=== PATIENT | female | born 1950 | race Caucasian/White ===

== ENCOUNTER 2023-11-16 13:03 | Outpatient (AMB) | payer OTHER, SELFPAY ==
--- NOTE | 2023-11-16 13:05 | A.OFFPC_ITS ---
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 Allergies Sulfa (Sulfonamide Antibiotics) Allergy (Severe, Verified 11/16/23 13:26) Hives doxycycline Allergy (Unknown, Verified 11/16/23 13:58) Unknown penicillin G Allergy (Unknown, Verified 11/16/23 13:58) Hives Medication List - Last Reconciled 11/16/23 by Katie Burns MD aspirin 81 mg PO DAILY cholecalciferol (vitamin D3) 25 mcg PO DAILY hydrocortisone valerate 0.2% 1 appl topical BID PRN metronidazole 0.75% 1 appl topical BID saliva substitute combo no.9 (Biotene PBF mouthwash) 15 mL mucous membrane BID- QID PRN triamcinolone acetonide 0.5% 1 appl topical DAILY zoledronic rkem-vgyjjquu-lyeqy 5 mg/100 mL (Reclast) ea IV Tobacco use date assessed: 11/16/23 Fall risk assessment: 1 Fall in past year Last assessed Fall Risk: 11/16/23 Dental Screening Dental Screen Date: 11/16/23 Did you have a dental visit in the last 12 months?: Yes Did you have a dental problem in the last 6 months where you did not have access to dental care?: No Was dental information given to patient?: Patient has dentist HPI HPI Comments History of Present Illness Details 73 year old female with past medical his tory of osteoporosis, hyperlipidemia, diverticulitis, thyroid nodules presenting for physical exam Endocrine: Follows with endocrine for osteoporosis, thyroid nodules. On reclast vacation GI: History of recurrent diverticulitis s/p sigmoidectomy in 2022. Saw [facility] for hip and upper thigh discomfort. There was some changes L4L5 noted on xray. Pain in the lateral buttock and anterior thigh have increased and often disrupt sleep. She has a history of knee pain has received left knee injection at [facility] with good improvement. 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 Mammogram 02/2023 ([place]) Colonoscopy 2021 Td 2021 Due pneumonia 20 PFSH Medical History (Updated 11/16/23 @ 14:48 by Katie Burns MD) Diverticulitis Rosacea Periocular dermatitis Bilateral cataracts Diverticulosis of colon Surgical History (Updated 11/16/23 @ 13:56 by Claudia Pardo CMA) H/O oral surgery H/O breast implant History of facelift Family History (Updated 11/16/23 @ 13:59 by Claudia Pardo CMA) Mother HTN (hypertension) Diabetes Father Hypercholesteremia Social History Housing: House Patient Tobacco Use Status: Never used Tobacco e-Cigarette/Vaping Use: Never Used Second Hand Smoke Exposure: No service: No Current occupational status: employed 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 1. Little interest or pleasure in doing things: not at all 2. Feeling down, depressed, or hopeless: not at all 3. Trouble falling or staying asleep, or sleeping too much: not at all 4. Feeling tired or having little energy: not at all 5. Poor appetite or overeating: not at all 6. Feeling bad about yourself - or that you are a failure or have let yourself or your family down: not at all 7. Trouble concentrating on things, such as reading the newspaper or watching television: not at all 8. Moving or speaking so slowly that other people could have noticed. Or the opposite - being so fidgety or restless that you have been moving around a lot more than usual: not at all 9. Thoughts that you would be better off or of hurting yourself in some way: not at all Total score: 0 Depression Screening Interpretation: Negative (neg) Depression Screening Done: Yes 85778 - PHQ-9 Billing: Yes Source: Developed by Drs. Marcus Mireles, Michelle Naranjo, Toney Michael and colleagues, with an educational gilberto from [employer]. Thrive Questionnaire Date Thrive assessed: 11/16/23 I am a: Patient What is your living situation today?: I have a steady place to live Within the past 12 months, did the food you bought not last and you didn't have the money to get more?: Never true Within the past 12 months, did you worry whether your food would run out before you got money to buy more?: Never true Do you have trouble paying for medicines?: No Do you have trouble getting transportation to medical appointments?: No Do you have trouble paying your heating and electricity bill?: No Do you have trouble taking care of your child, family member or friend?: No Do you have trouble with day-to-day activities such as bathing, preparing meals, shopping, managing finances, etc.?: No Are you currently unemployed and looking for a job?: No Are you interested in more education?: No Please select the resources that you would like help with: None Currently or been in a relationship where the following occur: no concerns reported THRIVE Score: 0 AUDIT C Alcohol Use Questionnaire (AUDIT-C) 1. How often do you have a drink containing alcohol?: Never 2. How many drinks containing alcohol do you have on a typical day when you are drinking?: 1 or 2 3. How often do you have six or more drinks on one occasion?: Never Total Score: 0 DAFNE-7 AMB Questionnaire DAFNE-7 Date DAFNE - 7 assessed: 11/16/23 Feeling nervous, anxious, or on edge: 0 = Not at all Not being able to stop or control worryin = Not at all Worrying too much about different things: 0 = Not at all Trouble relaxin = Not at all Being so restless that it is hard to sit still: 0 = Not at all Becoming easily annoyed or irritable: 0 = Not at all Feeling afraid as if something awful might happen: 0 = Not at all Total DAFNE-7 score (0-4 normal; 5-9 mild; 10-14 moderate; 15-21 severe): 0 Source: Developed by Drs. Marcus Mireles, Michelle Naranjo, Toney Michael and colleagues, with an educational gilberto from [employer]. DAFNE-7 Assessment Billing DAFNE-7 Assessment Tool: DAFNE-7 Assessment 77515 Review of Systems Const Details: ROS CONSTITUTIONAL: Denies weight loss, fever and chills. HEENT: Denies changes in vision and hearing. RESPIRATORY: Denies SOB and cough. CV: Denies palpitations and CP GI: Denies abdominal pain, nausea, vomiting and diarrhea. : Denies dysuria and urinary frequency. MSK: see HPI SKIN: Denies rash and pruritus. NEUROLOGICAL: Denies headache PSYCHIATRIC: Denies recent changes in mood. Physical exam (Primary Care) Vital Signs: Last Vital Signs Temp 97.4 F 11/16/23 13:34 Pulse 76 11/16/23 13:34 Resp 76 H 11/16/23 13:34 BP 104/60 11/16/23 13:34 Pulse Ox 95 11/16/23 13:34 Oxygen Delivery Method Room Air 11/16/23 13:34 PHYSICAL EXAM: GENERAL: Alert and oriented x 3. NAD EYES: EOMI. Anicteric. HENT: Moist mucous membranes. LUNGS: Clear to auscultation bilaterally. CARDIOVASCULAR: Regular rate and rhythm. No murmur. No JVD. ABDOMEN: Soft, non-tender +bs EXTREMITIES: No edema. Non-tender. SKIN: No rashes or lesions. Warm. NEUROLOGIC: No focal neurological deficits. PSYCHIATRIC: Cooperative. Appropriate mood and affect BMI result Body Mass Index 23.5 Depression Screening Interpretation: Negative (neg) Currently or been in a relationship where the following occur: no concerns repo rted Assessment and Plan Assessment & Plan (1) Osteoporosis: Code(s): M81.0 - Age-related osteoporosis without current pathological fracture Qualifiers: Osteoporosis type: age-related Presence of current pathological fracture: unspecified Qualified Code(s): M81.0 - Age-related osteoporosis without current pathological fracture (2) IBS (irritable bowel syndrome): Code(s): K58.9 - Irritable bowel syndrome without diarrhea Qualifiers: Irritable bowel syndrome type: unspecified Qualified Code(s): K58.9 - Irritable bowel syndrome without diarrhea (3) Hyperlipidemia: Code(s): E78.5 - Hyperlipidemia, unspecified Qualifiers: Hyperlipidemia type: mixed hyperlipidemia Qualified Code(s): E78.2 - Mixed hyperlipidemia (4) Thyroid nodule: Code(s): E04.1 - Nontoxic single thyroid nodule (5) Physical exam: Code(s): Z00.00 - Encounter for general adult medical examination without abnormal findings (6) Lumbosacral radiculopathy: Comment: referral pain management for consideration of injection etc. Has completed PT Code(s): M54.17 - Radiculopathy, lumbosacral region Orders: Orders Complete Blood Count Auto Diff Today E04.1 - Nontoxic single thyroid nodule, E78.5 - Hyperlipidemia, unspecified, K58.9 - Irritable bowel syndrome without diarrhea, M81.0 - Age-related osteoporosis without current pathological fracture Comprehensive Met. Panel Today E04.1 - Nontoxic single thyroid nodule, E78.5 - Hyperlipidemia, unspecified, K58.9 - Irritable bowel syndrome without diarrhea, M81.0 - Age-related osteoporosis without current pathological fracture Lipid Panel Today E04.1 - Nontoxic single thyroid nodule, E78.5 - Hyperlipidemia, unspecified, K58.9 - Irritable bowel syndrome without diarrhea, M81.0 - Age-related osteoporosis without current pathological fracture Referrals Pain Management Referral M54.17 - Radiculopathy, lumbosacral region Coding Level of Care Code Est Pt Prev Care >65y(86306) Diagnoses Age related osteoporosis, unspecified pathological fracture presence M81.0 Osteoporosis type: age-related Presence of current pathological fracture: unspecified Irritable bowel syndrome, unspecified type K58.9 Irritable bowel syndrome type: unspecified Mixed hyperlipidemia E78.2 Hyperlipidemia type: mixed hyperlipidemia Thyroid nodule E04.1 Physical exam Z00.00 Lumbosacral radiculopathy M54.17 Additional Codes DAFNE-7 Assessment Billing - DAFNE-7 Assessment Tool: DAFNE-7 Assessment 58906 ([id number]) Comment + modifier 25 (lumbosacral radiculopathy)
[2023-11-16 13:34] VITALS: BP 104/60; PULSE 76; RESP 76; TEMP 36.3; O2SAT 95; BMI 23.5
== END 2023-11-16 14:46 | disposition home or self-care (01) ==
PROVIDERS: PCP Internal Medicine; Visit Provider Internal Medicine
DX: M81.0 Age-related osteoporosis without current pathological fracture (principal); K58.9 Irritable bowel syndrome, unspecified; E78.2 Mixed hyperlipidemia; E04.1 Nontoxic single thyroid nodule; Z00.00 Encounter for general adult medical examination without abnormal findings; M54.17 Radiculopathy, lumbosacral region
CPT/HCPCS: 99397

== ENCOUNTER 2025-04-15 12:58 | Outpatient (AMB) | payer OTHER, SELFPAY ==
--- NOTE | 2025-04-15 13:04 | MHC.PC.OV ---
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 Allergies Sulfa (Sulfonamide Antibiotics) Allergy (Severe, Verified 04/15/25 13:08) Hives doxycycline Allergy (Unknown, Verified 04/15/25 13:08) Unknown penicillin G Allergy (Unknown, Verified 04/15/25 13:08) Hives Tobacco use date assessed: 04/15/25 Fall risk assessment: No Falls in past year Last assessed Fall Risk: 04/15/25 Dental Screening Dental Screen Date: 04/15/25 Did you have a dental visit in the last 12 months?: Yes Did you have a dental problem in the last 6 months where you did not have access to dental care?: No Was dental information given to patient?: Patient has dentist HPI HPI Comments History of Present Illness Details 74 year old female with past medical history of osteoporosis, hyperlipidemia, diverticulitis, thyroid nodules presenting for physical exam Endocrine: Follows at [place] for osteoporosis. Back on reclast. GI: History of recurrent diverticulitis s/p sigmoidectomy in 2022. Follows now with [facility]-previously with [facility]. Started on probiotics and antacid -some improvement MSK: Stable. Saw [facility] for hip and upper thigh discomfort. There was some changes L4L5 noted on xray. Pain in the lateral buttock and anterior thigh have increased and often disrupt sleep. She has a history of knee pain has received left knee injection at [facility] with good improvement. History of thyroid nodules s/p benign FNA. 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 HEENT: Denies changes in vision and hearing. RESPIRATORY: Denies SOB and cough. CV: Denies palpitations and CP GI: Denies abdominal pain, nausea, vomiting and diarrhea. : Denies dysuria and urinary frequency. MSK: Denies new myalgia and joint pain. SKIN: Denies rash and pruritus. NEUROLOGICAL: Denies headache PSYCHIATRIC: Denies recent changes in mood. PHYSICAL EXAM: GENERAL: Alert and oriented x 3. NAD EYES: EOMI. Anicteric. HENT: Moist mucous membranes. Heterogenous thyroid LUNGS: Clear to auscultation bilaterally. CARDIOVASCULAR: Regular rate and rhythm. No JVD. ABDOMEN: Soft, non-tender +bs EXTREMITIES: No edema. Non-tender. SKIN: No rashes or lesions. Warm. NEUROLOGIC: No focal neurological deficits. CN II-XII grossly intact PSYCHIATRIC: Cooperative. 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 1. Little interest or pleasure in doing things: not at all 2. Feeling down, depressed, or hopeless: not at all 3. Trouble falling or staying asleep, or sleeping too much: not at all 4. Feeling tired or having little energy: not at all 5. Poor appetite or overeating: not at all 6. Feeling bad about yourself - or that you are a failure or have let yourself or your family down: not at all 7. Trouble concentrating on things, such as reading the newspaper or watching television: not at all 8. Moving or speaking so slowly that other people could have noticed. Or the opposite - being so fidgety or restless that you have been moving around a lot more than usual: not at all 9. Thoughts that you would be better off or of hurting yourself in some way: not at all Total score: 0 Depression Screening Interpretation: Negative Depression Screening Done: Yes 85233 - PHQ-9 Billing: Yes Source: Developed by Drs. Marcus Mireles, Michelle Naranjo, Toney Michael and colleagues, with an educational gilberto from [employer]. Thrive Questionnaire Date Thrive assessed: 11/16/23 I am a: Patient What is your living situation today?: I have a steady place to live Within the past 12 months, did the food you bought not last and you didn't have the money to get more?: Never true Within the past 12 months, did you worry whether your food would run out before you got money to buy more?: Never true Do you have trouble paying for medicines?: No Do you have trouble getting transportation to medical appointments?: No Do you have trouble paying your heating and electricity bill?: No Do you have trouble taking care of your child, family member or friend?: No Do you have trouble with day-to-day activities such as bathing, preparing meals, shopping, managing finances, etc.?: No Are you currently unemployed and looking for a job?: No Are you interested in more education?: No Please select the resources that you would like help with: None Currently or been in a relationship where the following occur: No concerns reported THRIVE Score: 0 AUDIT C Alcohol Use Questionnaire (AUDIT-C) 1. How often do you have a drink containing alcohol?: 2-4 times a month 2. How many drinks containing alcohol do you have on a typical day when you are drinking?: 1 or 2 3. How often do you have six or more drinks on one occasion?: Never Total Score: 2 DAFNE-7 AMB Questionnaire DAFNE-7 Date DAFNE - 7 assessed: 04/15/25 Feeling nervous, anxious, or on edge: 0 = Not at all Not being able to stop or control worryin = Not at all Worrying too much about different things: 0 = Not at all Trouble relaxin = Not at all Being so restless that it is hard to sit still: 0 = Not at all Becoming easily annoyed or irritable: 0 = Not at all Feeling afraid as if something awful might happen: 0 = Not at all Total DAFNE-7 score (0-4 normal; 5-9 mild; 10-14 moderate; 15-21 severe): 0 Source: Developed by Drs. Marcus Mireles, Michelle Naranjo, Toney Michael and colleagues, with an educational gilberto from [employer]. DAFNE-7 Assessment Billing DAFNE-7 Assessment Tool: DAFNE-7 Assessment 30189 Physical exam (Primary Care) Vital Signs: Last Vital Signs Temp 97.5 F 04/15/25 13:13 Pulse 77 04/15/25 13:13 Resp 16 04/15/25 13:13 BP 108/70 04/15/25 13:13 Pulse Ox 97 04/15/25 13:13 Oxygen Delivery Method Room Air 04/15/25 13:13 Tobacco/Smoking Status: Tobacco use Status Tobacco use date assessed 04/15/25 04/15/25 13:11 Patient Tobacco Use Status Never used Tobacco 04/15/25 13:12 e-Cigarette/Vaping Use Never Used 04/15/25 13:12 PHQ-9: PHQ-9 Score PHQ-9: Total score 0 04/15/25 13:19 Depression Screening Interpretation: Negative Thrive Assessment: Date of Thrive Assessment Date Thrive assessed 11/16/23 04/15/25 13:06 Currently or been in a relationship where the following occur: No concerns reported Coding Level of Care Code Est Pt Prev Care >65y(90835) Diagnoses Physical exam Z00.00 Mixed hyperlipidemia E78.2 Hyperlipidemia type: mixed hyperlipidemia Thyroid nodule E04.1 Age related osteoporosis, unspecified pathological fracture presence M81.0 Osteoporosis type: age-related Presence of current pathological fracture: unspecified Irritable bowel syndrome, unspecified type K58.9 Irritable bowel syndrome type: unspecified Additional Codes DAFNE-7 Assessment Billing - DAFNE-7 Assessment Tool: DAFNE-7 Assessment 47843 ([id number]) PHQ-9 - 93314 - PHQ-9 Billing: Yes ([id number]) Assessment & Plan Assessment & Plan (1) Physical exam: Code(s): Z00.00 - Encounter for general adult medical examination without abnormal findings Category: Medical (2) Hyperlipidemia: Code(s): E78.5 - Hyperlipidemia, unspecified Category: Medical Qualifiers: Hyperlipidemia type: mixed hyperlipidemia Qualified Code(s): E78.2 - Mixed hyperlipidemia (3) Thyroid nodule: Code(s): E04.1 - Nontoxic single thyroid nodule Category: Medical (4) Osteoporosis: Code(s): M81.0 - Age-related osteoporosis without current pathological fracture Category: Medical Qualifiers: Osteoporosis type: age-related Presence of current pathological fracture: unspecified Qualified Code(s): M81.0 - Age-related osteoporosis without current pathological fracture (5) IBS (irritable bowel syndrome): Code(s): K58.9 - Irritable bowel syndrome, unspecified Category: Medical Qualifiers: Irritable bowel syndrome type: unspecified Qualified Code(s): K58.9 - Irritable bowel syndrome without diarrhea Plan 74 year old for CPE Interval history reviewed Preventive care measures reviewed Chronic medical conditions are stable Osteoporosis-continue Thyroid nodules-repeat us Labs ordered Orders: Orders Lipid Panel Today E78.2 - Mixed hyperlipidemia, M54.17 - Radiculopathy, lumbosacral region, M81.0 - Age-related osteoporosis without current pathological fracture, R73.09 - Other abnormal glucose Complete Blood Count Auto Diff Today E78.2 - Mixed hyperlipidemia, M54.17 - Radiculopathy, lumbosacral region, M81.0 - Age-related osteoporosis without current pathological fracture, R73.09 - Other abnormal glucose Hemoglobin A1c Today E78.2 - Mixed hyperlipidemia, M54.17 - Radiculopathy, lumbosacral region, M81.0 - Age-related osteoporosis without current pathological fracture, R73.09 - Other abnormal glucose TSH reflex Free T4 Today E78.2 - Mixed hyperlipidemia, M54.17 - Radiculopathy, lumbosacral region, M81.0 - Age-related osteoporosis without current pathological fracture, R73.09 - Other abnormal glucose Comprehensive Met. Panel Today E78.2 - Mixed hyperlipidemia, M54.17 - Radiculopathy, lumbosacral region, M81.0 - Age-related osteoporosis without current pathological fracture, R73.09 - Other abnormal glucose US thyroid Today E04.1 - Nontoxic single thyroid nodule
[2025-04-15 13:13] VITALS: BP 108/70; PULSE 77; RESP 16; TEMP 36.4; O2SAT 97
--- OUTSIDE RECORDS SUMMARY | 2025-04-15 16:36 | XMS_ITS | Encounter Summary ---
Author Organization [facility] Address [address] [place] [address] Phone Care Team Providers Care Sales Support Administrator Name Role Phone Regina Ashraf MD Primary Care Provide r Rachna Guajardo MD Primary Care Provider [phone] System, Provider Not In PhD Primary Care Provide r Unavailable Katie Jin MD Primary Care Provider Encounter Details Date Type Department Care Team (Late st Contact Info) Description 2019 Procedure Pass [address] PERIOP DEPT [address] [place] [id number] Social History Tobacco Use Types Packs/Day Years Used Date Smoking Tobacco: Never Smokeless Tobacco: Never Alcohol Use Standard Drinks/Week Comments Yes 0 (1 standard drink = 0.6 oz pur e alcohol) 1 per week Comments Unknown Sex and Gender Information Value Date Recorded Sex Assigned at Female 01/06/2020 9:21 AM EDT Legal Sex Female 7:10 PM EST Gender Identity Female 01/06/2020 9:21 AM EDT Sexual Orientation Straight 01/06/2020 9: 21 AM EDT documented as of this encounter Plan of Treatment Upcoming Encounters Date Type Department Care Team (Late Contact Info) Description 03/14/2025 Procedure Pass [facility] [address] [place] [address] 03/19/2026 9:45 AM EDT Appointment [facility] [address] [place] [address] Regina Ashraf MD [address] [place] [address] documented as of this encounter Visit Diagnoses Not on filedocumented in this encounter Care Teams Sales Support Administrator Relationship Specialty Start Date End Date Regina Ashraf MD [address] [place] [address] [address] [place] [address] PCP - General Obstetrics and Gynecology 01/19/1811/25 Rachna Guajardo MD [address] [place] [address] PCP - General Internal Medicine 12/19/19 03/11/24 System, Provider Not In, PhD [address] [address] PCP - General 03/12/24 04/20/24 Katie Jin MD [address] [address] PCP - General Internal Medicine 04/21/24 documented as of this encounter Additional Source Comments The information contained in this document represents components of the legal health record. It is not the complete legal health record.[facility]
--- OUTSIDE RECORDS SUMMARY | 2025-04-15 16:37 | XMS_ITS | Encounter Summary ---
Author Organization [facility] and [facility] Address [address] [place] [address] Care Team Providers Care Skid Strapper Name Role Phone Katie Burns MD Primary Care Provider [phone] Encounter Details Date Type Department Care Team ([facility] Contact Info) Description 01/05/2023 Scanned Document INTERFACE DEFAULT [address] [place] [address] System, Provider Not In Social History Tobacco Use Types Packs/Day Years Used Date Smoking Tobacco: Never Smokeless Tobacco: Never Alcohol Use Standard Drinks/Week Comments Yes 2 (1 standard drink = 0.6 oz pur e alcohol) socially AUDIT-C Answer Date Recorded Q1: How often do you have a drink containing alc ohol? Monthly or less 04/25/2022 Q2: How many drinks containi ng alcohol do you have on a typical day when you are drinking? 1 or 2 04/25/2022 Q3: How often do you have si x or more drinks on one occasion? Never 04/25/2022 PHQ-2 Answer Date Recorded PHQ-2 Total Score 0 04/25/2022 Housing Stability Answer Date Recorded Housing Stability I have a steady place to live 04/25/2022 Comments No Sex and Gender Information Value Date Recorded Sex Assigned at Female 05/04/2022 9:08 AM EST Legal Sex Female 7:08 PM EDT Gender Identity Female 05/04/2022 9:08 AM EST Sexual Orientation Straight 05/04/2022 9: 08 AM EST documented as of this encounter Plan of Treatment Not on file documented as of this encounter Procedures Procedure Name Priority Date/Time Associated Diagnosis Comments URODYNAMIC SCAN 01/05/2023 12:00 AM EDT documented in this encounter Results * URODYNAMIC SCAN (01/05/2023 12:00 AM EDT) us Provider Not In System PROCEDURE ORDERABLES F inal Result documented in this encounter Visit Diagnoses Not on filedocumented in this encounter Additional Health Concerns Assessment Noted Time PHQ-9 Depression Total Score: 0 04/25/20 22 9:38 AM EDT documented as of this encounter Care Teams Skid Strapper Relationship Specialty Start Date End Date Katie Burns MD [address] [address] PCP - General Internal Medicine 10/27/22 documented as of this encounter
--- OUTSIDE RECORDS SUMMARY | 2025-04-15 16:37 | XMS_ITS | Encounter Summary ---
Author Organization [facility] and [facility] Address [address] [place] [phone] Care Team Providers Care Director Of Product Development Name Role Phone Katie Burns MD Primary Care Provider Encounter Details Date Type Department Care Team (Late st Contact Info) Description 12/07/2022 Scanned Document [facility] SCHEDULING [address] [place], [place] [id number] Provider, Historical . Social History Tobacco Use Types Packs/Day Years [...] Procedure Name Priority Date/Time Associated Diagnosis Comments CT RESULT SCAN Routine 12/07/2022 documented in this encounter Results * CT Result Scan (12/07/2022) us Historical Provider IMG SCAN REPORTS Final Resul t documented in this encounter Visit Diagnoses Not on filedocumented in this encounter Additional Health Concerns Assessment Noted Time PHQ-9 Depression Total Score: 0 04/25/20 22 9:38 AM EDT documented as of this encounter Care Teams Director Of Product Development Relationship Specialty Start Date End Date Katie Burns MD [address] [address] PCP - General Internal Medicine 10/27/22 documented as of this encounter
--- OUTSIDE RECORDS SUMMARY | 2025-04-15 16:37 | XMS_ITS | Encounter Summary ---
Author Organization [facility] Address [address] [facility] [address] [place] [address] Phone Care Team Providers Care Fire Watcher Name Role Phone Rachna Guajardo MD Primary Care Provider + [phone] System, Provider Not In PhD Primary Care Provide r Katie Griffin MD Primary Care Provider + [phone] Encounter Details Date Type Department Care Team (Late st Contact Info) Description 02/28/2020 Ancillary Orders [facility] [address] [address] Regina Ashraf MD [address] [place] [address] Screening breast examination Social History Tobacco Use Types Packs/Day Years Used Date Smoking Tobacco: Never Smokeless Tobacco: Never Alcohol Use Standard Drinks/Week Comments Yes 2 (1 standard drink = 0.6 oz pur e alcohol) Comments No Sex and Gender Information Value Date Recorded Sex Assigned at Female 01/06/2020 9:21 AM EDT Legal Sex Female 7:10 PM EST Gender Identity Female 01/06/2020 9:21 AM EDT Sexual Orientation Straight 01/06/2020 9: 21 AM EDT documented as of this encounter Plan of Treatment Upcoming Encounters Date Type Department Care Team (Late st Contact Info) Description 03/14/2025 Procedure Pass [facility] [address] [address] 03/19/2026 9:45 AM EDT Appointment [facility] [address] [place] [address] Regina Ashraf MD [address] [place] [address] documented as of this encounter Results * BI MAMMOGRAM SCREENING WITH TOMOSYNTHESIS WITH CAD (BILATERAL) (03/05/2021 8:59 AM EDT) Anatomical Region Laterality Modality Breast Left, Breast Right, Breast Bilateral Bila teral Mammography 03/05/2021 11:4 1 AM EDT Impressions 03/05/2021 12:09 PM EDT No mammographic evidence of malignancy. Recommend routine screening. The patient was sent a letter with the results of the exam and follow-up recommendation. OVERALL ASSESSMENT -- BI-RADS 1 NEGATIVE ATTESTATION: Lizbeth López, as teaching physician have reviewed the images, if any, for this patient's exam, and if necessary, have edited the report originally created by Zoraida Iniguez. Narrative 03/05/2021 12:09 PM EDT Reason for exam: Screening. No new breast complaints. TECHNIQUE: Digital Mammography and tomosynthesis were used to obtain images. Computer Aided Detection was used to aid in interpretation and volumetric breast density assessment may have been used as an aid in evaluating breast density. COMPARISON: Comparison is made with relevant prior imaging in PACS. Breast Composition: scattered areas of fibroglandular density. FINDINGS: Bilateral Breasts: Retropectoral silicone implants are present. No significant masses, suspicious calcifications, or other abnormalities are seen. Procedure Note Lizbeth Chou MD - 03/05/2021 Reason for exam: Screening. No new breast complaints. TECHNIQUE: Digital Mammography and tomosynthesis were used to obtain images. ComputerAided Detection was used to aid in interpretation and volumetric breastdensity assessment may have been used as an aid in evaluating breastdensity. COMPARISON: Comparison is made with relevant prior imaging in PACS. Breast Composition: scattered areas of fibroglandular density. FINDINGS: Bilateral Breasts: Retropectoral silicone implants are present. No significant masses, suspicious calcifications, or other abnormalitiesare seen. IMPRESSION: No mammographic evidence of malignancy. Recommend routine screening. The patient was sent a letter with the results of the exam and follow-uprecommendation. OVERALL ASSESSMENT -- BI-RADS 1 NEGATIVE ATTESTATION: Lizbeth López, as teaching physician have reviewed theimages, if any, for this patient's exam, and if necessary, have edited thereport originally created by Zoraida Iniguez. us Regina Ashraf MD IMG MG EXAMS Final Result documented in this encounter Visit Diagnoses Diagnosis Screening breast examination Other screening breast examination Screening breast examination Other screening breast examination documented in this encounter Care Teams Fire Watcher Relationship Specialty Start Date End Date Rachna Guajardo MD [address] [place] [address] PCP - General Internal Medicine 12/19/19 03/11/24 System, Provider Not In, PhD [address] [address] PCP - General 03/12/24 04/20/24 Katie Jin MD [address] [address] PCP - General Internal Medicine 04/21/24 documented as of this encounter Additional Source Comments The information contained in this document represents components of the legal health record. It is not the complete legal health record.[facility]
--- OUTSIDE RECORDS SUMMARY | 2025-04-15 16:37 | XMS_ITS | Encounter Summary ---
Author Organization [facility] Address [address] [facility] [address] [place] [address] Phone Care Team Providers Care Account Installation Specialist Name Role Phone Rachna Guajardo MD Primary Care Provider + [phone] System, Provider Not In PhD Primary Care Provide r Katie Griffin MD Primary Care Provider + [phone] Encounter Details Date Type Department Care Team (Late st Contact Info) Description 12/19/2019 Procedure Pass [facility] DEPT [address] [place] [address] Social History Tobacco Use Types Packs/Day Years [...] st Contact Info) Description 03/14/2025 Procedure Pass [facility] [address] [place] [address] 03/19/2026 9:45 AM EDT Appointment [facility] [address] [place] [address] Regina Ashraf MD [address] [place] [address] documented as of this encounter Visit Diagnoses Not on filedocumented in this encounter Care Teams Account Installation Specialist Relationship Specialty Start Date End Date Rachna Guajardo MD [address] [place] [address] PCP - General Internal Medicine 12/19/19 03/11/24 System, Provider Not In, PhD [address] [address] PCP - General 03/12/24 04/20/24 Katie Jin MD [address] [address] PCP - General Internal Medicine 04/21/24 documented as of this encounter Additional Source Comments The information contained in this document represents components of the legal health record. It is not the complete legal health record.[facility]
--- OUTSIDE RECORDS SUMMARY | 2025-04-15 16:37 | XMS_ITS | Encounter Summary ---
Author Organization [facility] Address [address] [facility] [address] [place] [address] Phone Care Team Providers Care Group Sales Manager Name Role Phone Regina Ashraf MD Primary Care Provide r Rachna Guajardo MD Primary Care Provider [phone] System, Provider Not In PhD Primary Care Provide r Unavailable Katie Jin MD Primary Care Provider [phone] Encounter Details Date Type Department Care Team (Late st Contact Info) Description 12/10/2019 Prep for Surgery [facility] [address] [place] [address] Mary Ann Stiles MD [address] [place] [address] [email or web address] 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) Social History Tobacco Use Types Packs/Day Years [...] st Contact Info) Description 03/14/2025 Procedure Pass [facility] [address] [place] [address] 03/19/2026 9:45 AM EDT Appointment [facility] [address] [place] [address] Regina Ashraf MD [address] [place] [address] documented as of this encounter Visit Diagnoses Diagnosis Combined form of senile cataract of left eye- Primary documented in this encounter Care Teams Group Sales Manager Relationship Specialty Start Date End Date Regina Ashraf MD [address] [place] [address] [place] [phone] PCP - General Obstetrics and Gynecology 01/19/1811/25 Rachna Guajardo MD [address] [place] [address] PCP - General Internal Medicine 12/19/19 03/11/24 System, Provider Not In, PhD [address] [address] PCP - General 03/12/24 04/20/24 Katie Jin MD [address] [address] PCP - General Internal Medicine 04/21/24 documented as of this encounter Additional Source Comments The information contained in this document represents components of the legal health record. It is not the complete legal health record.[facility]
--- OUTSIDE RECORDS SUMMARY | 2025-04-15 16:37 | XMS_ITS | Encounter Summary ---
Author Organization [facility] and [facility] Address [address] [place] [phone] Care Team Providers Care Tire Finisher Name Role Phone Katie Burns MD Primary Care Provider [phone] Encounter Details Date Type Department Care Team ([facility] Contact Info) Description 12/19/2022 Scanned Document INTERFACE DEFAULT [address] [place] [address] System, Provider Not In Social History [...] on file documented as of this encounter Visit Diagnoses Not on filedocumented in this encounter Additional Health Concerns Assessment Noted Time PHQ-9 Depression Total Score: 0 04/25/20 22 9:38 AM EDT documented as of this encounter Care Teams Tire Finisher Relationship Specialty Start Date End Date Katie Burns MD [address] [address] PCP - General Internal Medicine 10/27/22 documented as of this encounter
--- OUTSIDE RECORDS SUMMARY | 2025-04-15 16:37 | XMS_ITS | Encounter Summary ---
Author Organization [facility] Address [address] [facility] [address] [place] [address] Phone Care Team Providers Care Gore Stitcher Name Role Phone Regina Ashraf MD Primary Care Provide r Rachna Guajardo MD Primary Care Provider [phone] System, Provider Not In PhD Primary Care Provide r Unavailable Katie Jin MD Primary Care Provider + [phone] Encounter Details Date Type Department Care Team (Late st Contact Info) Description 12/11/2019 Prep for Surgery [facility] [address] [place] [address] Mary Ann Stiles MD [address] [place] [address] [email or web address] Combined form of senile cataract of left [...] st Contact Info) Description 03/14/2025 Procedure Pass [facility] [address] [place] [address] 03/19/2026 9:45 AM EDT Appointment [facility] [address] [place] [address] Regina Ashraf MD [address] [place] [address] documented as of this encounter Visit Diagnoses Diagnosis Combined form of senile cataract of left eye- Primary documented in this encounter Care Teams Gore Stitcher Relationship Specialty Start Date End Date Regina Ashraf MD [address] [place] [address] [place] [phone] PCP - General Obstetrics and Gynecology 01/19/1811/25 Rachna Guajardo MD [address] [place] [address] PCP - General Internal Medicine 12/19/19 03/11/24 System, Provider Not In, PhD [address] [address] PCP - General 03/12/24 04/20/24 Katie Jin MD [address] [address] PCP - General Internal Medicine 04/21/24 documented as of this encounter Additional Source Comments The information contained in this document represents components of the legal health record. It is not the complete legal health record.[facility]
--- OUTSIDE RECORDS SUMMARY | 2025-04-15 16:37 | XMS_ITS | Encounter Summary ---
Author Organization [facility] and [facility] Address [address] [place] [address] Care Team Providers Care Shoe Cutter Name Role Phone Katie Burns MD Primary Care Provider Reason for Referral * Imaging (Routine) - Closed Specialty Diagnoses / Procedures Referred By Sue spear Referred To Contact Diagnostic Radiology Procedures CT Abdomen Pelvis w IV Contrast Guerrero Martínez MD PhD [address] [place] [phone] Phone: tel: fax: Referral ID Status Reason Start Date Expiration Date Visits Re quested Visits Authorized [id number] Closed 12/08/2022 12/08/2023 1 1 Encounter Details Date Type Department Care Team (Late st Contact Info) Description 12/08/2022 Scanned Document [facility] GI Surgery Sharyn [address] [place] [phone] Guerrero Martínez MD PhD [address] [place] [phone] Social History Tobacco Use Types Packs/Day Years [...] Name Priority Date/Time Associated Diagnosis Comments CT ABDOMEN PELVIS W IV CONTRAST Routine 12/08/2022 documented in this encounter Results * CT Abdomen Pelvis w IV Contrast (12/08/2022) Anatomical Region Laterality Modality Abdomen, Pelvis, Ortho Pelvis, Abdomen and Pelvi s Computed Tomography us Guerrero Martínez MD PhD IMG CT ORDERABLES Final Re sult documented in this encounter Visit Diagnoses Not on filedocumented in this encounter Additional Health Concerns Assessment Noted Time PHQ-9 Depression Total Score: 0 04/25/20 22 9:38 AM EDT documented as of this encounter Care Teams Shoe Cutter Relationship Specialty Start Date End Date Katie Burns MD [address] [address] PCP - General Internal Medicine 10/27/22 documented as of this encounter
--- OUTSIDE RECORDS SUMMARY | 2025-04-15 16:37 | XMS_ITS | Encounter Summary ---
Author Organization [facility] Address [address] [facility] [address] [place] [address] Phone Care Team Providers Care Music Industry Intern Name Role Phone Regina Ashraf MD Primary Care Provide r Rachna Guajardo MD Primary Care Provider [phone] System, Provider Not In PhD Primary Care Provide r Unavailable Katie Jin MD Primary Care Provider [phone] Encounter Details Date Type Department Care Team (Late st Contact Info) Description 12/12/2019 Telephone [facility] [address] [facility] [place] [address] Joan Tesfaye [address] [place] [address] [email or web address] Social History Tobacco Use Types Packs/Day Years Used Date Smoking Tobacco: Never Smokeless Tobacco: Never Alcohol Use Standard Drinks/Week Comments Yes 2 (1 standard drink = 0.6 oz pur e alcohol) Comments Unknown Sex and Gender Information Value Date Recorded Sex Assigned at Female 01/06/2020 9:21 AM EDT Legal Sex Female 7:10 PM EST Gender Identity Female 01/06/2020 9:21 AM EDT Sexual Orientation Straight 01/06/2020 9: 21 AM EDT documented as of this encounter Plan of Treatment Upcoming Encounters Date Type Department Care Team (Late st Contact Info) Description 03/14/2025 Procedure Pass [facility] [address] [place] [address] 03/19/2026 9:45 AM EDT Appointment [facility] [address] [place] [address] Regina Ashraf MD [address] [place] [address] documented as of this encounter Visit Diagnoses Not on filedocumented in this encounter Care Teams Music Industry Intern Relationship Specialty Start Date End Date Regina Ashraf MD [address] [place] [address] [address] [place] [address] PCP - General Obstetrics and Gynecology 01/19/1811/25 Rachna Guajardo MD [address] [place] [address] PCP - General Internal Medicine 12/19/19 03/11/24 System, Provider Not In, PhD [address] [address] PCP - General 03/12/24 04/20/24 Katie Jin MD [address] [address] PCP - General Internal Medicine 04/21/24 documented as of this encounter Additional Source Comments The information contained in this document represents components of the legal health record. It is not the complete legal health record.[facility]
--- OUTSIDE RECORDS SUMMARY | 2025-04-15 16:37 | XMS_ITS | Clinical Summary ---
Author Organization [facility] Address [address] [place] [address] Care Team Providers Care Manager Application Development Name Role Phone Rachna Guajardo MD Primary Care Provider [phone] Allergies Active Allergy Reactions Criticality Noted Date Comments Sulfa Antibiotics Hives 04/22/2022 Medications Medication Sig Dispensed Refills Start Date End Date Status Zoledronic Acid (RECLAST IV) Inject into the vein. 0 Active loperamide (IMODIUM) 2 MG capsule Take 1 capsule (2 mg total) by mouth daily. 0 Active sodium chloride (KATE 128) 5 % ophthalmic solution Place 1 drop into both eyes every night at bedtime. 0 Active metroNIDAZOLE (FLAGYL) 500 MG/100ML IVPB Inject 100 mL (500 mg total) into the vein every 8 (eight) hours. 1 mL 0 04/24/2022 Active cefTRIAXone (ROCEPHIN) 1 g injection Inject 1,000 mg (1 g total) into the vein daily. 1 each 0 04/25/2022 Active Active Problems Problem Noted Date Diagnosed Date Osteoporosis 04/23/2022 Diverticulitis 04/22/2022 Sepsis 04/22/2022 Family History Medical History Relation Name Comments Cervical cancer Cousin Heart disease Father Dementia Mother Relation Name Status Comments Cousin Alive Father Mother Social History Tobacco Use Types Packs/Day Years Used Date Smoking Tobacco: Never Smokeless Tobacco: Never Tobacco Cessation:Counseling Given: Not Answered Alcohol Use Standard Drinks/Week Comments Yes 1 (1 standard drink = 0.6 oz pur e alcohol) Sex and Gender Information Value Date Recorded Sex Assigned at Not on file Gender Identity Not on file Sexual Orientation Not on file Job Start Date Occupation Industry Not on file Not on file Not on file Last Filed Vital Signs Vital Sign Reading Time Taken Comments Blood Pressure 128/80 04/24/2022 7:28 PM EDT Pulse 93 04/24/2022 7:28 PM EDT Temperature 37.1 C (98.7 F) 04/24/2022 7:28 PM EDT Respiratory Rate 18 04/24/2022 7:28 PM EDT Oxygen Saturation 99% 04/24/2022 7:28 PM EDT Inhaled Oxygen Concentration - - Weight 66.7 kg (147 lb) 04/23/2022 8:05 AM EDT Height 162.6 cm (5' 4 ) 04/23/2022 8:05 AM EDT Body Mass Index 25.23 04/23/2022 8:05 AM EDT Plan of Treatment Health Maintenance Due Date Last Done Comments Hepatitis C Screening 1950 COVID-19 Vaccine (#1) 04[birth year]26/1951 Depression Screening 1964 Preventative Health Evaluation 1970 DTap / Tdap / Td (1 - Tdap) 10/25/1971 Colon Cancer Screening (Colonoscopy) 1997 Breast Cancer Screening (Mammogram) 2002 Shingrix-Zoster Vaccine (1 of 2) 2002 Fall Risk Assessment 2017 Osteoporosis Screening (DEXA Scan) 2017 Pneumococcal Vaccine (1 of 1 - PCV) 2017 Influenza Vaccine (#1) 2025 RSV Adult > 60+ Yrs or Pregn ant (1 - 1-dose 75+ series) 10/25/2027 Hepatitis B Vaccines Aged Out No long er eligible based on patient's age to complete this topic RSV Ped < 20 months Aged Out No longe r eligible based on patient's age to complete this topic Advance Directives For more information, please contact: [phone] Latest Code Status on File Code Status Date Activated Date Inactivated Comments Full Code 04/23/2022 1:30 AM 04/25/2022 2:32 AM Dis cussed with the patient Code Status History Code Status Date Activated Date Inactivated Comments Full Code 04/22/2022 11:25 PM 04/23/2022 1:30 AM Care Teams Manager Application Development Relationship Specialty Start Date End Date Rachna Guajardo MD [address] [place] [address] PCP - General Internal Medicine 04/22/22
--- OUTSIDE RECORDS SUMMARY | 2025-04-15 16:37 | XMS_ITS | Encounter Summary ---
Author Organization [facility] Address [address] [facility] [address] [place] [address] Phone Care Team Providers Care Patient Insurance Clerk Name Role Phone Regina Ashraf MD Primary Care Provide r Rachna Guajardo MD Primary Care Provider [phone] [phone] System, Provider Not In PhD Primary Care Provide r Unavailable Katie Jin MD Primary Care Provider Encounter Details Date Type Department Care Team (Late st Contact Info) Description 01/19/2018 Ancillary Orders [facility] [address] [facility] [address] [place] [address] Rachna Guajardo MD [address] [facility] [address] [place] [address] Screening breast examination Social History Tobacco Use [...] st Contact Info) Description 03/14/2025 Procedure Pass [facility] [address] [place] [address] 03/19/2026 9:45 AM EDT Appointment [facility] [address] [place] [address] Regina Ashraf MD [address] [place] [address] documented as of this encounter Results * BI MAMMOGRAM SCREENING WITH TOMOSYNTHESIS WITH CAD (BILATERAL) (02/15/2019 9:45 AM EDT) Anatomical Region Laterality Modality Breast Left, Breast Right, Breast Bilateral Bila teral Mammography 02/15/2019 10:0 0 AM EDT Impressions 02/15/2019 11:33 AM EDT No mammographic evidence of malignancy. Recommend routine screening. The patient was sent a letter with the results of the exam and follow-up recommendation. OVERALL ASSESSMENT -- BI-RADS 1 NEGATIVE Narrative 02/15/2019 11:33 AM EDT Reason for exam: Screening. No new [...] areas of fibroglandular density. FINDINGS: Bilateral Breasts: No significant masses, suspicious calcifications, or other abnormalities are seen. Retropectoral silicone implants are present, unchanged in contour. Procedure Note Shaniqua De Luna MD - 02/15/2019 Reason for exam: Screening. No new breast complaints. TECHNIQUE: Digital Mammography and tomosynthesis were used to obtain images. ComputerAided Detection was used to aid in interpretation and volumetric breastdensity assessment may have been used as an aid in evaluating breast density. COMPARISON: Comparison is made with relevant prior imaging in PACS. Breast Composition: scattered areas of fibroglandular density. FINDINGS: Bilateral Breasts: No significant masses, suspicious calcifications, or other abnormalitiesare seen. Retropectoral silicone implants are present, unchanged in contour. IMPRESSION: No mammographic evidence of malignancy. Recommend routine screening. The patient was sent a letter with the results of the exam and follow-up recommendation. OVERALL ASSESSMENT -- BI-RADS 1 NEGATIVE Rachna Guajardo MD IMG MG EXAMS Final Res ult documented in this encounter Visit Diagnoses Diagnosis Screening breast examination Other screening breast examination Screening breast examination Other screening breast examination documented in this encounter Care Teams Patient Insurance Clerk Relationship Specialty Start Date End Date Regina Ashraf MD [address] [place] [address] Drive [address] [place] [address] PCP - General Obstetrics and Gynecology 01/19/1811/25 Rachna Guajardo MD [address] [place] [address] PCP - General Internal Medicine 12/19/19 03/11/24 System, Provider Not In, PhD [address] [address] PCP - General 03/12/24 04/20/24 Katie Jin MD [address] [address] PCP - General Internal Medicine 04/21/24 documented as of this encounter Additional Source Comments The information contained in this document represents components of the legal health record. It is not the complete legal health record.[facility]
--- OUTSIDE RECORDS SUMMARY | 2025-04-15 16:37 | XMS_ITS | Encounter Summary ---
Author Organization [facility] Address [address] [facility] [address] [place] [address] Phone Care Team Providers Care Principal Automation Engineer Name Role Phone Regina Ashraf MD Primary Care Provide r Rachna Guajardo MD Primary Care Provider [phone] System, Provider Not In PhD Primary Care Provide r Unavailable Katie Jin MD Primary Care Provider Encounter Details Date Type Department Care Team (Late st Contact Info) Description 02/15/2019 Ancillary Orders [facility] [address] [place] [address] Regina Ashraf MD [address] [place] [address] Breast screening Social History Tobacco Use Types Packs/Day Years [...] st Contact Info) Description 03/14/2025 Procedure Pass [facility] [address] [place] [address] 03/19/2026 9:45 AM EDT Appointment [facility] [address] [facility] [address] [place] [address] Regina Ashraf MD [address] [place] [address] documented as of this encounter Results * BI MAMMOGRAM SCREENING WITH TOMOSYNTHESIS WITH CAD (BILATERAL) (02/28/2020 8:59 AM EDT) Anatomical Region Laterality Modality Breast Left, Breast Right, Breast Bilateral Bila teral Mammography 02/28/2020 11:0 4 AM EDT Impressions 02/28/2020 11:11 AM EDT No mammographic evidence of malignancy. Recommend routine screening. The patient was sent a letter with the results of the exam and follow-up recommendation. OVERALL ASSESSMENT -- BI-RADS 2 BENIGN Narrative 02/28/2020 11:11 AM EDT Reason for exam: Screening. No [...] suspicious calcifications, or other abnormalities are seen. There are stable bilateral subpectoral silicone implants. There is been no significant interval change. The implants have a smooth contour without evidence of extravasation or leak. Procedure Note [facility] [facility] - 02/28/2020 Reason for exam: Screening. No new breast [...] masses, suspicious calcifications, or other abnormalitiesare seen. There are stable bilateral subpectoral silicone implants. There is been nosignificant interval change. The implants have a smooth contour withoutevidence of extravasation or leak. IMPRESSION: No mammographic evidence of malignancy. Recommend routine screening. The patient was sent a letter with the results of the exam and follow-uprecommendation. OVERALL ASSESSMENT -- BI-RADS 2 BENIGN us Regina Ashraf MD IMG MG EXAMS Final Result documented in this encounter Visit Diagnoses Diagnosis Breast screening Breast screening, unspecified Breast screening Breast screening, unspecified documented in this encounter Care Teams Principal Automation Engineer Relationship Specialty Start Date End Date Regina Ashraf MD [address] [place] [address] [address] [place] [address] PCP - General Obstetrics and Gynecology 01/19/1811/25 Rachna Guajardo MD [address] [place] [address] PCP - General Internal Medicine 12/19/19 03/11/24 System, Provider Not In, PhD [address] [address] PCP - General 03/12/24 04/20/24 Katie Jin MD [address] [address] PCP - General Internal Medicine 04/21/24 documented as of this encounter Additional Source Comments The information contained in this document represents components of the legal health record. It is not the complete legal health record.[facility]
--- OUTSIDE RECORDS SUMMARY | 2025-04-15 16:37 | XMS_ITS | Encounter Summary ---
Author Organization [facility] Address [address] [place] [phone] Care Team Providers Care Business Development Executive Name Role Phone Katie Burns MD Primary Care Provider Reason for Referral * Physical Medicine (Routine) - Closed Specialty Diagnoses / Procedures Referred By Contac t Referred To Contact Procedures PT Pre Operative Evaluation [facility] SCHEDULING [address] [place] [address] Phone: tel: Referral ID Status Reason Start Date Expiration Date Visits Re quested Visits Authorized [id number] Closed 03/09/2023 03/08/2024 1 1 * Physical Medicine (Routine) - Closed Specialty Diagnoses / Procedures Referred By Contac t Referred To Contact Procedures PT Pre Operative Evaluation [facility] SCHEDULING [address] [place] [address] Phone: tel: Referral ID Status Reason Start Date Expiration Date Visits Re quested Visits Authorized [id number] Closed 03/09/2023 03/08/2024 1 1 Encounter Details Date Type Department Care Team ([facility] Contact Info) Description 03/09/2023 Scanned Document [facility] SCHEDULING [address] [place] [address] Provider, Scott . Social History Tobacco Use Types Packs/Day Years Used Date Smoking Tobacco: Never Smokeless Tobacco: Never Alcohol Use Standard Drinks/Week Comments Yes 2 (1 standard drink = 0.6 oz pur e alcohol) socially AUDIT-C Answer Date Recorded Q1: How often do you have a drink containing alc ohol? Monthly or less 03/13/2023 Q2: How many drinks containi ng alcohol do you have on a typical day when you are drinking? 1 or 2 03/13/2023 Q3: How often do you have si x or more drinks on one occasion? Never 03/13/2023 Overall Financial Resource Strain (CARDIA) Answe r Date Recorded How hard is it for you to pa y for the very basics like food, housing, medical care, and heating? Not very hard 03/13/2023 PHQ-2 Answer Date Recorded PHQ-2 Total Score 0 03/13/2023 Hunger Vital Sign Answer Date Recorded Within the past 12 months, y ou worried that your food would run out before you got the money to buy more. Never true 03/13/20 23 Within the past 12 months, t he food you bought just didn't last and you didn't have money to get more. Never true 03/13/2023 PRAPARE - Transportation Answer Date Re corded In the past 12 months, has l ack of transportation kept you from medical appointments or from getting medications? No 02/24 In the past 12 months, has l ack of transportation kept you from meetings, work, or from getting things needed for daily living? No 03/13/2023 Housing Stability Answer Date Recorded Housing Stability I have a steady place to live 04/25/2022 Interpersonal Safety Answer Date Record ed Is there anyone in your life that is hurting or threatening you in anyway? Not on file 03/13/2023 Physical Indicators of Abuse No evidence of phys ical abuse 03/13/2023 Comments No Sex and Gender Information Value Date Recorded Sex Assigned at Female 05/04/2022 9:08 AM EST Legal Sex Female 7:08 PM EDT Gender Identity Female 05/04/2022 9:08 AM EST Sexual Orientation Straight 05/04/2022 9: 08 AM EST documented as of this encounter Plan of Treatment Not on file documented as of this encounter Procedures Procedure Name Priority Date/Time Associated Diagnosis Comments PT PRE OPERATIVE EVALUATION Routine 03/09/2023 PT PRE OPERATIVE EVALUATION Routine 03/09/2023 documented in this encounter Results * PT Pre Operative Evaluation (03/09/2023) us Historical Provider PT ORDERABLES Final Result * PT Pre Operative Evaluation (03/09/2023) us Historical Provider PT ORDERABLES Final Result documented in this encounter Visit Diagnoses Not on filedocumented in this encounter Additional Health Concerns Assessment Noted Time PHQ-9 Depression Total Score: 0 04/25/20 22 9:38 AM EDT documented as of this encounter Care Teams Business Development Executive Relationship Specialty Start Date End Date Katie Burns MD [address] [place] [phone] PCP - General Internal Medicine 10/27/22 documented as of this encounter
--- OUTSIDE RECORDS SUMMARY | 2025-04-15 16:37 | XMS_ITS | Clinical Summary ---
Author Organization [facility] [address] [facility] Address [address] [place] [phone] Phone Care Team Providers Care Commercial Loan Closer Name Role Phone Katie Burns MD Primary Care Provider Allergies Active Allergy Reactions Criticality Noted Date Comments Doxycycline Monohydrate Other (See Comments) Medium STOMACH ULCERS Sulfa (Sulfonamide Antibiotics) Hives High 08/15/2002 Medications cholecalciferol , vitamin D3, (VITAMIN D3 ORAL) Take 1 tablet by mouth 5 (five) times a week. Active multivitamin capsule Take 1 capsule by mouth daily. Active calcium carbonate (CALCIUM 300 ORAL) Take 1 tablet by mouth daily. Active biotin 10,000 mcg Cap Take 1 capsule by mouth daily. Active zoledronic acid/mannitol-w ater (RECLAST IV) Inject 5 mg into the vein Every 12 (twelve) months. 3 Active oxyCODONE (ROXICODONE) 5 mg Immediate Release tablet Take 1 tablet (5 mg total) by mouth every 4 (four) hours as needed. 8 tablet 3 Active Additional Information Patient not taking.Reason: Other, Reported on 03/06/2025 minoxidiL (LONITEN) 2.5 mg tablet Take 0.5 tablets (1.25 mg total) by mouth daily. Active famotidine (PEPCID) 40 mg tablet Take 1 tablet (40 mg total) by mouth daily. 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 Encounters Date Type Department Care Team Description 03/06/2025 10:00 AM EDT Office Visit [facility] [address] [facility], [address] [place] [address] Guerrero Martínez MD PhD Patsy Ellsworth MD Epigastric pain (Primary Dx); Irritable bowel syndrome with diarrhea; Bloating 03/05/2025 Telephone [facility] [address] [place] [address] Guerrero Martínez MD PhD Other 02/27/2025 Orders Only [facility] [address] [place] [address] Guerrero Martínez MD PhD Diverticulitis (Primary Dx) 02/27/2025 Orders Only [facility] Surgery [facility] [address] [place] [address] Guerrero Martínez MD PhD Diverticulitis (Primary Dx) from Last 3 Months Family History Medical History Relation Name Comments Heart disease Father Juan Rose Hypertension Mother Jacqueline Rose Diabetes Paternal Grandmother Hiram Rose Relation Name Status Comments Father Juan Rose Mother Jacqueline Rose Paternal Grandmother Hiram Rose Social History Tobacco Use Types Packs/Day Years Used Date Smoking Tobacco: Never Smokeless Tobacco: Never Tobacco Cessation:Counseling Given: Not Answered Alcohol Use Standard Drinks/Week Comments Yes 2 [...] getting things needed for daily living? No 03/14/2023 Housing Stability Answer Date Recorded What is your living situation today? I have a [facility] place to live 03/14/2023 Interpersonal Safety Answer Date Record ed Is [...] Orientation Straight 05/04/2022 9: 08 AM EST Last Filed Vital Signs Vital Sign Reading Time Taken Comments Blood Pressure 118/76 03/06/2025 10:07 AM EDT Pulse 57 03/06/2025 10:07 AM EDT Temperature 36.3 C (97.4 F) 03/06/2025 10:07 AM EDT Respiratory Rate 19 04/27/2023 12:24 PM EDT Oxygen Saturation 99% 03/06/2025 10:07 AM EDT Inhaled Oxygen Concentration - - Weight 67.6 kg (149 lb) 03/06/2025 10:07 AM EDT Height 168.9 cm (5' 6.5 ) 03/06/2025 10:07 AM ED T Body Mass Index 23.69 03/06/2025 10:07 AM EDT Plan of Treatment Health Maintenance Due Date Last Done Comments HIV screening 1965 Hepatitis C screening 1970 Lipid disorder screening 1992 Colon cancer screening, Colonoscopy 1997 Pneumococcal Vaccine (50+ years) (1 of 1 - PCV) 2002 Influenza vaccine 01/24/2025 04/14/2022, , 03/24/2020, Additional history exists Covid-19 vaccine series ( - season) 2025 06/03/2022, 11/26/2021, 02/24/2021, Additional history exists Breast cancer screening 03/08/2026 03/08/20, 03/08/2024, 03/03/2023, Additional history exists Diabetes screening 03/14/2026 03/14/2023, 0 03/13/2023, 05/04/2022, Additional history exists RSV Immunization (1 - 1-dose 75+ series) 10/25/2027 Tetanus adult (Td q 10,TDAP once) 03/02/2032 03/02/2022 Shingles vaccine (Shingrix) Completed 02/28/2018, 0 11/03/2017 Osteoporosis screening (bone density) Completed 12/02/2024, 12/02/2024, 11/13/2023, Additional history exists Cervical cancer screening Discontinued Meningococcal B Vaccine Aged Out No l onger eligible based on patient's age to complete this topic Meningococcal Vaccine Aged Out No severo janie eligible based on patient's age to complete this topic Procedures Procedure Name Priority Date/Time Associated Diagnosis Comments BASIC METABOLIC PANEL Urgent 03/14/2023 5:46 AM EDT from Last 3 Months or Most Recently Relevant to Health Maintenance Results * (ABNORMAL) Basic metabolic panel (03/14/2023 5:46 AM EDT) Sodium 138 136 - 144 mmol/L 03/14/2023 6:31 AM EDT [facility] OF [facility] MEDICINE Potassium 3.5 3.3 - 5.3 mmol/L 03/14/2023 6:31 AM EDT [facility] Chloride 103 98 - 107 mmol/L 03/14/2023 6:31 AM EDT [facility] CO2 26 20 - 30 mmol/L 03/14/2023 6:31 AM EDT [facility] Anion Gap 9 7 - 17 03/14/2023 6:31 AM EDT [facility] Glucose 117(H) 70 - 100 mg/dL 03/14/2023 6:31 AM EDT [facility] BUN 6(L) 8 - 23 mg/dL 03/14/2023 6:31 AM EDT [facility] Creatinine 0.58 0.40 - 1.30 mg/dL 03/14/2023 6:31 AM EDT [facility] Calcium 8.3(L) 8.8 - 10.2 mg/dL 03/14/2023 6:31 AM EDT [facility] BUN/Creatinine Ratio 10.3 8.0 - 23.0 03/14/2023 6:31 AM T [facility] MEDICINE eGFR (Creatinine) >60 >=60 mL/min/1.7 3m2 03/14/2023 6:31 AM T [facility]IC[facility] Comment: Values < 60 mL/min/1.73 m2 may indicate CKD if present for more than three months AND creatinine is at steady state. The eGFR provides a rough estimate of kidney function. On 02/08/22 all [facility] Clinical Labs and Epic began using a uzt-whho-ojbal formula for estimating GFR called CKD-EPI Creatinine 2020. This equation reports eGFR based on creatinine, patient age, clinical sex, and is standardized to a body surface area of 1.73 m2. For the same creatinine, this new race-free eGFR will be lower than prior reported Black eGFR results and higher than prior Non-Black eGFR results. For further guidance, please refer to the CKD: Adult Compensation Specialist Signature pathway. Blood Venipuncture / Unknown 03/14/2023 5:46 AM EDT 03/14/2023 6:01 AM EDT us Guerrero Martínez MD PhD LAB BLOOD ORDERABLES Final Result [facility] DEPARTMENT OF LABORATORY MEDICINE [address] [place] [address], [facility] [phone] from Last 3 Months or Most Recently Relevant to Health Maintenance Insurance [employer] [place] [id number] [facility] [place] [phone] FORMERLY [facility] MEDICARE Advance Directives * Full Code (Latest Code Status on File) Date Activated Date Inactivated Comments 03/13/2023 12:56 PM 03/16/2023 2:41 PM Question Answer Comments With Whom was the Code Status Discussed? Patient * Full ACLS Date Activated Date Inactivated Comments 04/25/2022 2:53 AM 05/04/2022 1:51 PM Question Answer Comments With Whom was the Code Status Discussed? Patient Care Teams Commercial Loan Closer Relationship Specialty Start Date End Date Katie Burns MD [address] [place] [phone] PCP - General Internal Medicine 10/27/22
--- OUTSIDE RECORDS SUMMARY | 2025-04-15 16:37 | XMS_ITS | Encounter Summary ---
Author Organization [facility] Address [address] [facility] [address] [place] [address] Phone Care Team Providers Care Tap Grinder Name Role Phone Rachna Guajardo MD Primary Care Provider + [phone] System, Provider Not In PhD Primary Care Provide r Katie Griffin MD Primary Care Provider + [phone] Encounter Details Date Type Department Care Team (Late st Contact Info) Description 12/30/2019 Procedure Pass [facility] DE[facility] [address] [place] [address] Social History Tobacco Use Types Packs/Day Years [...] st Contact Info) Description 03/14/2025 Procedure Pass [facility] [address] [place] [phone] 03/19/2026 9:45 AM EDT Appointment [facility] [address] [place] [address] Regina Ashraf MD [address] [place] [phone] documented as of this encounter Visit Diagnoses Not on filedocumented in this encounter Care Teams Tap Grinder Relationship Specialty Start Date End Date Rachna Guajardo MD [address] [place] [address] PCP - General Internal Medicine 12/19/19 03/11/24 System, Provider Not In, PhD [address] [address] PCP - General 03/12/24 04/20/24 Katie Jin MD [address] [address] PCP - General Internal Medicine 04/21/24 documented as of this encounter Additional Source Comments The information contained in this document represents components of the legal health record. It is not the complete legal health record.[facility]
--- OUTSIDE RECORDS SUMMARY | 2025-04-15 16:37 | XMS_ITS | Encounter Summary ---
Author Organization [facility] Address [address] [facility] [address] [place] [address] Phone Care Team Providers Care Under Presser Name Role Phone Rachna Guajardo MD Primary Care Provider + [phone] System, Provider Not In PhD Primary Care Provide r Katie Griffin MD Primary Care Provider + [phone] Encounter Details Date Type Department Care Team (Late st Contact Info) Description 02/25/2020 Procedure Pass [facility] [address] [place] [address] Social History Tobacco Use Types Packs/Day Years [...] st Contact Info) Description 03/14/2025 Procedure Pass [facility] [address] [place] [address] 03/19/2026 9:45 AM EDT Appointment [facility] Diagnostic [address] [address] Regina Ashraf MD [address] [place] [phone] documented as of this encounter Visit Diagnoses Not on filedocumented in this encounter Care Teams Under Presser Relationship Specialty Start Date End Date Rachna Guajardo MD [address] [place] [address] PCP - General Internal Medicine 12/19/19 03/11/24 System, Provider Not In, PhD [address] [address] PCP - General 03/12/24 04/20/24 Katie Jin MD [address] [address] PCP - General Internal Medicine 04/21/24 documented as of this encounter Additional Source Comments The information contained in this document represents components of the legal health record. It is not the complete legal health record.[facility]
--- OUTSIDE RECORDS SUMMARY | 2025-04-15 16:37 | XMS_ITS | Encounter Summary ---
Author Organization [facility] Address [address] [facility] [address] [place] [address] Phone Care Team Providers Care Geological E Logger Name Role Phone Regina Ashraf MD Primary Care Provide r Rachna Guajardo MD Primary Care Provider [phone] System, Provider Not In PhD Primary Care Provide r Unavailable Katie Jin MD Primary Care Provider Encounter Details Date Type Department Care Team (Late st Contact Info) Description 01/19/2018 Ancillary Orders [facility] [address] [facility] [address] [place] [address] Rachna Guajardo MD [address] [facility] [address] [place] [address] Screening breast examination Social History Tobacco Use [...] st Contact Info) Description 03/14/2025 Procedure Pass [facility] [address] [place] [address] 03/19/2026 9:45 AM EDT Appointment [facility] [address] [place] [address] Regina Ashraf MD [address] [place] [address] documented as of this encounter Results * BI MAMMOGRAM SCREENING WITH TOMOSYNTHESIS WITH CAD (BILATERAL) (01/19/2018 10:57 AM EDT) Anatomical Region Laterality Modality Breast Left, Breast Right, Breast Bilateral Bila teral Mammography 01/19/2018 10:5 7 AM EDT Impressions 01/20/2018 10:59 AM EDT No mammographic evidence of malignancy. Recommend routine screening. The patient reports some intermittent burning sensation left breast and back. Clinical evaluation is suggested. The patient was sent a letter with the results of the exam and follow-up recommendation. OVERALL ASSESSMENT -- BI-RADS 1 NEGATIVE Narrative 01/20/2018 10:59 AM EDT Reason for exam: Screening. No new breast complaints. Occasional burning sensation on and off in left breast and in back. TECHNIQUE: Digital Mammography and tomosynthesis were used [...] or other abnormalities are seen. There are bilateral subpectoral silicone implants. Procedure Note Kati Farley MD - 01/20/2018 Reason for exam: Screening. No new breast complaints. Occasional burning sensation on and off in left breast and in back. TECHNIQUE: Digital Mammography and tomosynthesis were used [...] or other abnormalities are seen. There are bilateral subpectoral silicone implants. IMPRESSION: No mammographic evidence of malignancy. Recommend routine screening. The patient reports some intermittent burning sensation left breast and back. Clinical evaluation is suggested. The patient was sent a letter with the results of the exam and follow-up recommendation. OVERALL ASSESSMENT -- BI-RADS 1 NEGATIVE us Rachna Guajardo MD IMG MG EXAMS Final Res ult documented in this encounter Visit Diagnoses Diagnosis Screening breast examination Other screening breast examination Screening breast examination Other screening breast examination documented in this encounter Care Teams Geological E Logger Relationship Specialty Start Date End Date Regina Ashraf MD [address] [place] [address] [address] [place] [address] PCP - General Obstetrics and Gynecology 01/19/1811/25 Rachna Guajardo MD [address] [place] [address] PCP - General Internal Medicine 12/19/19 03/11/24 System, Provider Not In, PhD [address] [address] PCP - General 03/12/24 04/20/24 Katie Jin MD [address] [address] PCP - General Internal Medicine 04/21/24 documented as of this encounter Additional Source Comments The information contained in this document represents components of the legal health record. It is not the complete legal health record.[facility]
--- OUTSIDE RECORDS SUMMARY | 2025-04-15 16:37 | XMS_ITS | Encounter Summary ---
Author Organization [facility] Address [address] [facility] [address] [place] [address] Phone Care Team Providers Care Sheep Rancher Name Role Phone Rachna Guajardo MD Primary Care Provider + -[phone] System, Provider Not In PhD Primary Care Provide r Katie Griffin MD Primary Care Provider + [phone] Encounter Details Date Type Department Care Team (Late st Contact Info) Description 02/28/2020 Procedure Pass [facility] [address] [place] [address] Social History Tobacco Use Types Packs/Day Years [...] st Contact Info) Description 03/14/2025 Procedure Pass [facility] [address] [place] [address] 03/19/2026 9:45 AM EDT Appointment [facility] [address] [address] Regina Ashraf MD [address] [place] [address] documented as of this encounter Visit Diagnoses Not on filedocumented in this encounter Care Teams Sheep Rancher Relationship Specialty Start Date End Date Rachna Guajardo MD [address] [place] [address] PCP - General Internal Medicine 12/19/19 03/11/24 System, Provider Not In, PhD [address] [address] PCP - General 03/12/24 04/20/24 Katie Jin MD [address] [address] PCP - General Internal Medicine 04/21/24 documented as of this encounter Additional Source Comments The information contained in this document represents components of the legal health record. It is not the complete legal health record.[facility]
--- OUTSIDE RECORDS SUMMARY | 2025-04-15 16:38 | XMS_ITS | Encounter Summary ---
Author Organization [facility] Address [address] [facility] [address] [place] [address] Phone Care Team Providers Care Shorthand Reporter Name Role Phone Rachna Guajardo MD Primary Care Provider + [phone] System, Provider Not In PhD Primary Care Provide r Katie Griffin MD Primary Care Provider + [phone] Encounter Details Date Type Department Care Team (Late st Contact Info) Description 03/05/2021 Procedure Pass [facility] [address] [place] [address] Social History Tobacco Use Types Packs/Day Years [...] st Contact Info) Description 03/14/2025 Procedure Pass [facility] [address] [place] [address] 03/19/2026 9:45 AM EDT Appointment [facility] [address] [address] Regina Ashraf MD [address] [place] [address] documented as of this encounter Visit Diagnoses Not on filedocumented in this encounter Care Teams Shorthand Reporter Relationship Specialty Start Date End Date Rachna Guajardo MD [address] [place] [address] PCP - General Internal Medicine 12/19/19 03/11/24 System, Provider Not In, PhD [address] [address] PCP - General 03/12/24 04/20/24 Katie Jin MD [address] [address] PCP - General Internal Medicine 04/21/24 documented as of this encounter Additional Source Comments The information contained in this document represents components of the legal health record. It is not the complete legal health record.[facility]
--- OUTSIDE RECORDS SUMMARY | 2025-04-15 16:38 | XMS_ITS | Encounter Summary ---
Author Organization [facility] Address [address] [place] [address] Phone Care Team Providers Care Chicken Sexer Name Role Phone Rosalia De La Fuente MD Primary Care Provider Regina Vela MD Primary Care Provide r Rachna Guajardo MD Primary Care Provider [phone] System, Provider Not In PhD Primary Care Provide r Unavailable Katie Jin MD Primary Care Provider [phone] Encounter Details Date Type Department Care Team (Late st Contact Info) Description 01/24/2017 Ancillary Orders [facility] [address] [place] [address] Rachna Guajardo MD [address] [address] Screening breast examination Social History Tobacco Use Types Packs/Day Years Used Date Smoking Tobacco: Never Alcohol Use Standard Drinks/Week Comments [...] st Contact Info) Description 03/14/2025 Procedure Pass [facility] [address] [place] [address] 03/19/2026 9:45 AM EDT Appointment [facility] [address] [place] [address] Regina Ashraf MD [address] [place] [address] documented as of this encounter Results * (ABNORMAL) BI MAMMOGRAM SCREENING WITH TOMOSYNTHESIS WITH CAD (BILATERAL) (03/21/2017 4:17 PM EDT) Anatomical Region Laterality Modality Breast Left, Breast Right, Breast Bilateral Bila teral Mammography 03/21/2017 4:17 PM EDT Impressions 03/22/2017 2:07 PM EDT Left Breast: Category 2. Stable benign findings. No mammographic evidence of malignancy. Recommendation: Routine screening in 1 year. Right Breast: Category 0. Possible asymmetry. Recommendation: Right breast additional imaging at this time with diagnostic mammogram and possible limited ultrasound. Recommend additional imaging. The patient was sent a letter with the results of the exam and follow-up recommendation. She will be called by telephone to arrange for the additional work-up recommended. OVERALL ASSESSMENT -- BI-RADS 0 INCOMPLETE Needs additional evaluation END OF IMPRESSION Narrative 03/22/2017 2:07 PM EDT INDICATION: Screening. No current complaints. TECHNIQUE: Digital Mammography and tomosynthesis were used to obtain images. Computer Aided Detection was used to aid in interpretation and volumetric breast density assessment may have been used as an aid in evaluating breast density. COMPARISON: Comparison is made with relevant prior imaging in PACS. Breast Composition: heterogeneously dense which may obscure small masses FINDINGS: Left Breast: A retropectoral silicone implant is present. Postsurgical changes of prior excisional biopsies are present. No significant masses, suspicious calcifications, or other abnormalities are seen. Right Breast: A possible asymmetry is present in the outer breast at a posterior depth on the CC view only (slice 17). A retropectoral silicone implant is present. Procedure Note Jose De Jesus Flanagan MD - 03/22/2017 INDICATION: Screening. No current complaints. TECHNIQUE: Digital Mammography and tomosynthesis were used to obtain images. Computer Aided Detection was used to aid in interpretation and volumetric breast density assessment may have been used as an aid in evaluating breast density. COMPARISON: Comparison is made with relevant prior imaging in PACS. Breast Composition: heterogeneously dense which may obscure small masses FINDINGS: Left Breast: A retropectoral silicone implant is present. Postsurgical changes of prior excisional biopsies are present. No significant masses, suspicious calcifications, or other abnormalities are seen. Right Breast: A possible asymmetry is present in the outer breast at a posterior depth on the CC view only (slice 17). A retropectoral silicone implant is present. IMPRESSION: Left Breast: Category 2. Stable benign findings. No mammographic evidence of malignancy. Recommendation: Routine screening in 1 year. Right Breast: Category 0. Possible asymmetry. Recommendation: Right breast additional imaging at this time with diagnostic mammogram and possible limited ultrasound. Recommend additional imaging. The patient was sent a letter with the results of the exam and follow-up recommendation. She will be called by telephone to arrange for the additional work-up recommended. OVERALL ASSESSMENT -- BI-RADS 0 INCOMPLETE Needs additional evaluation END OF IMPRESSION us Rachna Guajardo MD IMG MG EXAMS Final Res ult documented in this encounter Visit Diagnoses Diagnosis Screening breast examination Other screening breast examination Screening breast examination Other screening breast examination documented in this encounter Care Teams Chicken Sexer Relationship Specialty Start Date End Date Rosalia De La Fuente MD PCP - General 10/30/14 01/18/18 Regina Ashraf MD [address] [place] [address] [address] [place] [address] PCP - General Obstetrics and Gynecology 01/19/1811/25 Rachna Guajardo MD [address] [place] [address] PCP - General Internal Medicine 12/19/19 03/11/24 System, Provider [place] In, [place] [address] PCP - General 03/12/24 04/20/24 [place] [address] PCP - General Internal Medicine 04/21/24 documented as of this encounter Additional Source Comments The information contained in this document represents components of the legal health record. It is not the complete legal health record.[facility]
--- OUTSIDE RECORDS SUMMARY | 2025-04-15 16:38 | XMS_ITS | Clinical Summary ---
Author Organization [facility] Address [address] [facility] [address] [place] [address] Phone Care Team Providers Care Fight Manager Name Role Phone Katie Jin MD Primary Care Provider Allergies Active Allergy Reactions Criticality Noted Date Comments Doxycycline Monohydrate 04/27/2021 STOMACH ULCERS Penicillins Unknown 08/15/2002 Pt denies. Sulfa (Sulfonamide Antibiotics) Hives Low 07/28 Medications cholecalciferol (CHOLECALCIFERO L) 1,000 unit tablet Take 1,000 Units by mouth 3 (three) times a week. Active aspirin (ASPIR-81) 81 MG EC tablet Take 81 mg by mouth daily. Active hydrocortisone valerate 0.2 % cream Apply topically daily as needed. Reported on 06/28/2016 Active loperamide HCl/simethicone (IMODIUM ADVANCED ORAL) Take 1 tablet by mouth daily. Active omeprazole 20 mg TbLD Take 20 mg by mouth daily as needed. Active calcium carbonate 500 mg (200 mg elemental) chewable tablet Take 2 tablets by mouth daily. Active sodium chloride (KATE 128) 5 % ophthalmic ointment Place 1 application into each eye nightly at bedtime. Active biotin 1 mg tablet Take 1,000 mcg by mouth daily. Active Active Problems Problem Noted Date Diagnosed Date History of breast augmentation 05/15/2012 Overview (08/16/2014): S/P Breast augmentation Uncoded S/P Liposuction 05/15/2012 Overview (08/16/2014): S/P Liposuction; liposuction of thighs Post-operative nausea and vomiting Encounters Date Type Department Care Team Description 03/14/2025 9:24 AM EDT - 03/14/2025 11:59 PM EDT Hospital Encounter [facility] [address] [place] [address] [address] Regina Ashraf MD Discharge Disposition: Home or Self Care 03/14/2025 Ancillary Orders [facility] [place] [address] [place] [address] [address] Regina Ashraf MD Screening breast examination (Primary Dx) 03/08/2024 Procedure Pass [facility] [place] [address] [address] from Last 3 Months Family History Medical History Relation Comments Ashkenazi Latter Day ancestry Father Diabetes Father Ashkenazi Latter Day ancestry Mother Diabetes Mother Macular degeneration Mother Relation Status Comments Father Mother Social History Tobacco Use Types Packs/Day Years Used Date Smoking Tobacco: Never Smokeless Tobacco: Never Alcohol Use Standard Drinks/Week Comments Yes 2 (1 standard drink = 0.6 oz pur e alcohol) Education Answer Date Recorded Are you interested in more education? Not on bonnie e 10/20/2022 Are you concerned about learning? Not on file 10/20/2022 No 10/20/2022 No 10/20/2022 Digital Access Answer Date Recorded No 11/21/2022 No 11/21/2022 Reliable internet access at home? Not on file 11/21/2022 Device with a working camera? Not on file Comments No Sex and Gender Information Value Date Recorded Sex Assigned at Female 01/06/2020 9:21 AM EDT Legal Sex Female 7:10 PM EST Gender Identity Female 01/06/2020 9:21 AM EDT Sexual Orientation Straight 01/06/2020 9: 21 AM EDT Last Filed Vital Signs Vital Sign Reading Time Taken Comments Blood Pressure 103/74 12/30/2019 9:37 AM EDT Pulse 67 12/30/2019 9:37 AM EDT Temperature 36.7 C (98 F) 12/30/2019 9:17 AM EDT Respiratory Rate 30 12/30/2019 9:37 AM EDT Oxygen Saturation 96% 12/30/2019 9:17 AM EDT Inhaled Oxygen Concentration - - Weight 63.5 kg (140 lb) 12/30/2019 7:15 AM EDT Height 170.2 cm (5' 7 ) 12/30/2019 7:15 AM EDT Body Mass Index 21.93 12/30/2019 7:15 AM EDT Plan of Treatment Upcoming Encounters Date Type Department Care Team (Late st Contact Info) Description 03/14/2025 Procedure Pass [facility] [address] [place] [address] 03/19/2026 9:45 AM EDT Appointment [facility] [address] [place] [address] Regina Ashraf MD [address] [place] [address] Health Maintenance Due Date Last Done Comments LIPID PANEL 1952 DEPRESSION SCREENING 1964 HEPATITIS C SCREENING 1970 COLOGUARD 1997 COLONOSCOPY 1997 COLORECTAL CANCER SCREENING 1997 FIT TEST 1997 FOBT 1997 SIGMOIDOSCOPY 1997 VIRTUAL COLONOSCOPY 1997 PNEUMOCOCCAL VACCINES (50+ years) (1 of 1 - PCV) 2002 INFLUENZA VACCINE (#1) 2025 , 04/14/2022, 04/05/2021, Additional history exists COVID-19 VACCINE ( season) 2025 12/24/2023, 01/27/2023, 11/26/2021, Additional history exists MAMMOGRAM 03/14/2027 03/14/2025, 02/24, 03/03/2023, Additional history exists RSV VACCINE (1 - 1-dose 75+ series) 10/25/2027 Adult Td,Tdap Booster 02/11/2034 02/12/2024, 022 ZOSTER VACCINES Completed 02/28/2018, 11/03/2017 SMOKING STATUS SCREENING (Once After 26 Yrs) Completed 04/30/2024 OSTEOPOROSIS SCREENING INITIAL (ONE-TIME) Completed 12/02/2024, 11/13/2023, 11/07/2022, Additional history exists HEPATITIS A VACCINES Aged Out No long er eligible based on patient's age to complete this topic HIB VACCINES Aged Out No longer eligi ble based on patient's age to complete this topic MENINGOCOCCAL VACCINES (ACWY) Aged Out No longer eligible based on patient's age to complete this topic MENINGOCOCCAL VACCINES (B) Aged Out N o longer eligible based on patient's age to complete this topic Medical Devices Implanted Type Area Roller Stitcher Device Identifier Shelf Expiration Date Model / Serial / Lot Lens Intraocular Toric Clear [id number] 13.5d - [id number] Implanted:Qty: 1 on 12/19/2019 by Mary Ann Stiles MD at [facility] Left: Eye [employer] 03/25/2022 [id number] 13.5D / [id number] / Lens Intraocular Toric Clear Sa6at4 14.5d - [id number] Implanted:Qty: 1 on 12/30/2019 by Mary Ann Stiles MD at [facility] Right: Eye [employer] 03/25/2022 [id number] 14.5D / [id number] / Procedures Procedure Name Priority Date/Time Associated Diagnosis Comments BI MAMMOGRAM SCREENING WITH TOMOSYNTHESIS WITH CAD (BILATERAL) Routine 03/14/2025 9:58 AM EDT Screening breast examination from Last 3 Months Results * BI MAMMOGRAM SCREENING WITH TOMOSYNTHESIS WITH CAD (BILATERAL) (03/14/2025 9:58 AM EDT) Anatomical Region Laterality Modality Breast Left, Breast Right, Breast Bilateral Bila teral Mammography 03/14/2025 5:27 PM EDT Impressions 03/14/2025 5:34 PM EDT No mammographic evidence of malignancy in either breast. Annual screening mammography is recommended. BI-RADS 1 NEGATIVE The patient will be notified of the results and recommendations. Narrative 03/14/2025 5:34 PM EDT BI MAMMOGRAM SCREENING WITH TOMOSYNTHESIS WITH CAD (BILATERAL) Additional patient information: Screening. COMPARISON: Comparison is made with relevant prior imaging. Breast composition: There are scattered areas of fibroglandular density. FINDINGS: Bilateral breast implants are present, which lowers the sensitivity of mammography. No abnormal masses, suspicious calcifications, or other significant findings are identified mammographically in either breast. Procedure Note Disha Fall MD - 03/14/2025 BI MAMMOGRAM SCREENING WITH TOMOSYNTHESIS WITH CAD (BILATERAL) Additional patient information: Screening. COMPARISON: Comparison is made with relevant prior imaging. Breast composition: There are scattered areas of fibroglandular density. FINDINGS: Bilateral breast implants are present, which lowers the sensitivity ofmammography. No abnormal masses, suspicious calcifications, or other significantfindings are identified mammographically in either breast. IMPRESSION: No mammographic evidence of malignancy in either breast. Annual screening mammography is recommended. BI-RADS 1 NEGATIVE The patient will be notified of the results and recommendations. Regina Ashraf MD IMG MG EXAMS Final Result from Last 3 Months Insurance MEDICARE A [facility] PPO MEDICARE A [facility] PPO MEDICARE A [facility] PPO MEDICARE A [facility] PPO MEDICARE A CIG PPO MEDICARE A [facility] PPO MEDICARE A CIG PPO [facility] PPO MEDICARE A [facility] PPO Advance Directives For more information, please contact: [phone] (9AM - 5PM [facility], Monday-Monday) * Full Code (Presumed) (Latest Code Status on File) Date Activated Date Inactivated Comments 12/30/2019 7:14 AM * Full Code (Presumed) Date Activated Date Inactivated Comments 12/19/2019 2:03 PM 12/30/2019 6:48 AM Care Teams Fight Manager Relationship Specialty Start Date End Date Katie Jin MD PCP - General Internal Medicine 04/21/24 Additional Source Comments The information contained in this document represents components of the legal health record. It is not the complete legal health record.[facility]
--- OUTSIDE RECORDS SUMMARY | 2025-04-15 16:38 | XMS_ITS | Clinical Summary ---
Author Organization [facility] Address [address] [place] [address] Care Team Providers Care Household Personal Assistant Name Role Phone Rachna Guajardo MD Primary Care Provider [phone] Social History Tobacco Use Types Packs/Day Years Used Date Smoking Tobacco: Never Assessed Comments Unknown Sex and Gender Information Value Date Recorded Sex Assigned at Not on file Legal Sex Female 5:34 PM EDT Gender Identity Not on file Sexual Orientation Not on file Plan of Treatment Health Maintenance Due Date Last Done Comments Advance Care Planning 1950 Hepatitis C Virus Screening 1950 DTaP/Tdap/Td Vaccines (1 - Tdap) 10/25/1971 Mammogram 1992 Colonoscopy 1997 Pneumococcal Vaccines 50+ (1 of 1 - PCV) 2002 Zoster (Shingles) Vaccine (1 of 2) 2002 DXA Bone Density (Females,Ag es 65 and older) 2017 Influenza Vaccine 01/24/2025 COVID-19 Vaccine ( - 2023-2 5 season) 2025 RSV Vaccine 50 years and old er and Patients (1 - 1-dose 75+ series) 10/25/2027 Hepatitis B Vaccines Aged Out No long er eligible based on patient's age to complete this topic Insurance [employer] HMO Care Teams Household Personal Assistant Relationship Specialty Start Date End Date Rachna Guajardo MD [address] [place] [id number] PCP - General Family Medicine 04/24/22
--- OUTSIDE RECORDS SUMMARY | 2025-04-15 16:38 | XMS_ITS | Encounter Summary ---
Author Organization [facility] Address [address] [place] [address] Phone Care Team Providers Care Senior Firewall Engineer Name Role Phone Rachna Guajardo MD Primary Care Provider + [phone] System, Provider Not In PhD Primary Care Provide r Katie Griffin MD Primary Care Provider + [phone] Encounter Details Date Type Department Care Team (Late st Contact Info) Description 12/24/2019 Prep for Surgery [facility] [address] [facility] 1st [place] [address] Mary Ann Stiles MD [address] [place] [address] [email or web address] 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) Social History Tobacco Use [...] st Contact Info) Description 03/14/2025 Procedure Pass [facility] [address] [place] [address] 03/19/2026 9:45 AM EDT Appointment [facility] [address] [address] Regina Ashraf MD [address] [place] [address] documented as of this encounter Visit Diagnoses Diagnosis Combined form of senile cataract of right eye- Primary documented in this encounter Care Teams Senior Firewall Engineer Relationship Specialty Start Date End Date Rachna Guajardo MD [address] [place] [address] PCP - General Internal Medicine 12/19/19 03/11/24 System, Provider Not In, PhD [address] [address] PCP - General 03/12/24 04/20/24 Katie Jin MD [address] [address] PCP - General Internal Medicine 04/21/24 documented as of this encounter Additional Source Comments The information contained in this document represents components of the legal health record. It is not the complete legal health record.[facility]
--- OUTSIDE RECORDS SUMMARY | 2025-04-15 16:38 | XMS_ITS | Encounter Summary ---
Author Organization [facility] Address [address] [place] [address] Phone Care Team Providers Care Bone Process Operator Name Role Phone Rosalia De La Fuente MD Primary Care Provider Pina Ramon MD Unavailable [phone] Regina Ashraf MD Primary Care Provide r [facility] Primary Care Provider +[phone] System, Provider Not In PhD Primary Care Provide r Unavailable Katie Jin MD Primary Care Provider [phone] Encounter Details Date Type Department Care Team (Latest Contact Info) Description 12/18/2014 Transcribe Orders [facility] [place] [address] [address] Dang Adhikari, LESA [facility] [place] [address] [email or web address] Screening breast examination (Primary Dx) Social History Tobacco Use Types Packs/Day Years Used Date Smoking Tobacco: Never Comments Unknown Sex and Gender Information Value Date Recorded Sex Assigned at Female 01/06/2020 9:21 AM EDT Legal Sex Female 7:10 PM EST Gender Identity Female 01/06/2020 9:21 AM EDT Sexual Orientation Straight 01/06/2020 9: 21 AM EDT documented as of this encounter Plan of Treatment Upcoming Encounters Date Type Department Care Team (Late st Contact Info) Description 03/14/2025 Procedure Pass [facility] [address] [place] [address] 03/19/2026 9:45 AM EDT Appointment [facility] [address] [place] [address] Regina Ashraf MD [address] [place] [address] documented as of this encounter Visit Diagnoses Diagnosis Screening breast examination- Primary Other screening breast examination documented in this encounter Care Teams Bone Process Operator Relationship Specialty Start Date End Date Rosalia De La Fuente MD PCP - General 10/30/14 01/18/18 Regina Ashraf MD [address] [place] [phone] PCP - General Obstetrics and Gynecology 01/19/18 12/18/19 Rachna Guajardo MD [address] [place] [address] PCP - General Internal Medicine 12/19/19 03/11/24 System, Provider Not In, PhD [address] [address] PCP - General 03/12/24 04/20/24 Katie Jin MD [address] [address] PCP - General Internal Medicine 04/21/24 Pina Teague MD [address] [place] [address] [email or web address] Insurance Assigned Provider 09/19/15 01/30/16 documented as of this encounter Additional Source Comments The information contained in this document represents components of the legal health record. It is not the complete legal health record.[facility]
--- OUTSIDE RECORDS SUMMARY | 2025-04-15 16:38 | XMS_ITS | Encounter Summary ---
Author Organization [facility] Address [address] [place] [id number] Care Team Providers Care Ball Truing Machine Operator Name Role Phone Katie Burns MD Primary Care Provider Encounter Details Date Type Department Care Team (Late st Contact Info) Description 05/18/2022 Scanned Document [facility] SCHEDULING [address] [place], [place] [id number] Guerrero Martínez MD PhD [address] [place] [phone] Social History Tobacco Use Types Packs/Day Years [...] a steady place to live 04/25/2022 Comments Unknown Sex and Gender Information Value Date Recorded Sex Assigned at Female 05/04/2022 9:08 AM EST Legal Sex Female 7:08 PM EDT Gender Identity Female 05/04/2022 9:08 AM EST Sexual Orientation Straight 05/04/2022 9: 08 AM EST COVID-19 Exposure Response Date Recorded In the last 10 days, have zaheer u been in contact with someone who was confirmed or suspected to have Coronavirus/COVID-19? No / Unsure 04/24/2022 7:10 PM EDT documented as of this encounter Plan of Treatment Not on file documented as of this encounter Procedures Procedure Name Priority Date/Time Associated Diagnosis Comments CT RESULT SCAN Routine 05/18/2022 documented in this encounter Results * CT Result Scan (05/18/2022) us Guerrero Martínez MD PhD IMG SCAN REPORTS Final Res ult documented in this encounter Visit Diagnoses Not on filedocumented in this encounter Additional Health Concerns Assessment Noted Time PHQ-9 Depression Total Score: 0 04/25/20 22 9:38 AM EDT documented as of this encounter Care Teams Ball Truing Machine Operator Relationship Specialty Start Date End Date Katie Burns MD [address] [place] [phone] PCP - General Internal Medicine 10/27/22 documented as of this encounter
--- OUTSIDE RECORDS SUMMARY | 2025-04-15 16:38 | XMS_ITS | Encounter Summary ---
Author Organization [facility] Address [address] [facility] [address] [place] [address] Phone Care Team Providers Care Appraisal Analyst Name Role Phone Rosalia De La Fuente MD Primary Care Provider Pina Ramon MD Unavailable [phone] Regina Ashraf MD Primary Care Provide r Rachna Guajardo MD Primary Care Provider [phone] System, Provider Not In PhD Primary Care Provide r Unavailable Katie Jin MD Primary Care Provider [phone] Encounter Details Date Type Department Care Team (Latest Contact Info) Description 01/11/2016 Transcribe Orders [facility] [address] [address] Dang Adhikari, LESA [facility] [place] [address] [email or web address] Screening breast examination (Primary Dx) Social History [...] [facility] [address] [place] [address] 03/19/2026 9:45 AM EDT Appointment [facility] [address] [place] [address] Regina Ashraf MD [address] [place] [address] documented as of this encounter Visit Diagnoses Diagnosis Screening breast examination- Primary Other screening breast examination documented in this encounter Care Teams Appraisal Analyst Relationship Specialty Start Date End Date Rosalia De La Fuente MD PCP - General 10/30/14 01/18/18 Regina Ashraf MD [address] [place] [phone] PCP - General Obstetrics and Gynecology 01/19/18 12/18/19 Rachna Guajardo MD [address] [place] [address] PCP - General Internal Medicine 12/19/19 03/11/24 System, Provider Not In, PhD [address] [address] PCP - General 03/12/24 04/20/24 Katie Jin MD [address] [address] PCP - General Internal Medicine 04/21/24 Pina Teague MD [address] [place] [address] [email or web address] Insurance Assigned Provider 09/19/15 01/30/16 documented as of this encounter Additional Source Comments The information contained in this document represents components of the legal health record. It is not the complete legal health record.[facility]
--- OUTSIDE RECORDS SUMMARY | 2025-04-15 16:38 | XMS_ITS | Encounter Summary ---
Author Organization [facility] Address [address] [facility] [address] [place] [address] Phone Care Team Providers Care Sanitary Landfill Operator Name Role Phone Rosalia De La Fuente MD Primary Care Provider Regina Vela MD Primary Care Provide r Rachna Guajardo MD Primary Care Provider + [phone] System, Provider Not In PhD Primary Care Provide r Unavailable Katie Jin MD Primary Care Provider [phone] Encounter Details Date Type Department Care Team (Latest Contact Info) Description 03/23/2017 Transcribe Orders [facility] [address] [facility] [address] [place] [address] [email or web address] Follow up (Primary Dx) Social History Tobacco Use Types [...] st Contact Info) Description 03/14/2025 Procedure Pass [facility] [address] [place] [address] 03/19/2026 9:45 AM EDT Appointment [facility] [address] [facility] [address] [place] [address] Regina Ashraf MD [address] [place] [address] documented as of this encounter Results * BI MAMMOGRAM DIAGNOSTIC WITH TOMOSYNTHESIS WITH CAD (RIGHT) (03/24/2017 8:35 AM EDT) Anatomical Region Laterality Modality Breast Right, Breast Bilateral Right M ammography 03/24/2017 8:35 AM EDT Impressions 03/24/2017 11:28 AM EDT Right Breast: Category 1. Negative, no mammographic evidence of malignancy. Recommendation: Routine screening in 1 year. Results were discussed with the patient and she was provided with a written summary at the time of the study. 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 Narrative 03/24/2017 11:28 AM EDT INDICATION: Questioned right asymmetry in the outer breast at posterior depth on recent screening mammogram seen on CC view. TECHNIQUE: Digital Mammography and tomosynthesis were used to obtain images. Computer Aided Detection was used to aid in interpretation and volumetric breast density assessment may have been used as an aid in evaluating breast density. COMPARISON: Comparison is made with relevant prior imaging in PACS. Breast Composition: heterogeneously dense which may obscure small masses. FINDINGS: Right Breast: The area of asymmetry questioned on the recent screening study does not persist on additional imaging, consistent with benign superimposition of breast parenchyma. No significant masses, suspicious calcifications, or other abnormalities are seen. Procedure Note Kenisha Mclaughlin MD - 03/24/2017 INDICATION: Questioned right asymmetry in the outer breast at posterior depth on recent screening mammogram seen on CC view. TECHNIQUE: Digital Mammography and tomosynthesis were used to obtain images. Computer Aided Detection was used to aid in interpretation and volumetric breast density assessment may have been used as an aid in evaluating breast density. COMPARISON: Comparison is made with relevant prior imaging in PACS. Breast Composition: heterogeneously dense which may obscure small masses. FINDINGS: Right Breast: The area of asymmetry questioned on the recent screening study does not persist on additional imaging, consistent with benign superimposition of breast parenchyma. No significant masses, suspicious calcifications, or other abnormalities are seen. IMPRESSION: Right Breast: Category 1. Negative, no mammographic evidence of malignancy. Recommendation: Routine screening in 1 year. Results were discussed with the patient and she was provided with a written summary at the time of the study. 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 us Rachna Guajardo MD IMG MG EXAMS Final Res ult documented in this encounter Visit Diagnoses Diagnosis Follow up- Primary Follow up documented in this encounter Care Teams Sanitary Landfill Operator Relationship Specialty Start Date End Date Rosalia De La Fuente MD PCP - General 10/30/14 01/18/18 Regina Ashraf MD [address] [place] [address] [address] [place] [address] PCP - General Obstetrics and Gynecology 01/19/1811/25 Rachna Guajardo MD [address] [place] [address] PCP - General Internal Medicine 12/19/19 03/11/24 System, Provider Not In, PhD [address] [address] PCP - General 03/12/24 04/20/24 Katie Jin MD [address] [address] PCP - General Internal Medicine 04/21/24 documented as of this encounter Additional Source Comments The information contained in this document represents components of the legal health record. It is not the complete legal health record.[facility]
--- OUTSIDE RECORDS SUMMARY | 2025-04-15 16:38 | XMS_ITS | Encounter Summary ---
Author Organization [facility] Address [address] [facility] [address] [place] [address] Phone Care Team Providers Care Radiology Scheduler Name Role Phone Rachna Guajardo MD Primary Care Provider + [phone] System, Provider Not In PhD Primary Care Provide r Katie Griffin MD Primary Care Provider + [phone] Encounter Details Date Type Department Care Team (Late st Contact Info) Description 03/05/2021 Ancillary Orders [facility] [address] [place] [address] Regina Ashraf MD [address] [place] [address] Screening breast examination Social History Tobacco Use [...] st Contact Info) Description 03/14/2025 Procedure Pass [facility] [address] [place] [address] [address] 03/19/2026 9:45 AM EDT Appointment [facility] [address] [place] [address] Regina Ashraf MD [address] [place] [address] documented as of this encounter Results * BI MAMMOGRAM SCREENING WITH TOMOSYNTHESIS WITH CAD (BILATERAL) (03/02/2022 9:24 AM EDT) Anatomical Region Laterality Modality Breast Left, Breast Right, Breast Bilateral Bila teral Mammography 03/02/2022 11:2 8 AM EDT Impressions 03/02/2022 11:33 AM EDT No mammographic evidence of malignancy. Recommend routine screening. The patient was sent a letter with the results of the exam and follow-up recommendation. OVERALL ASSESSMENT -- BI-RADS 2 BENIGN Narrative 03/02/2022 11:33 AM EDT Reason for exam: Screening. No new breast complaints. This patient had retropectoral silicone implants placed in 2009. TECHNIQUE: Digital Mammography and tomosynthesis were used [...] suspicious calcifications, or other abnormalities are seen. Routine views as well as pushback or displacement views are obtained. The silicone implants have a smooth contour without evidence of extravasation or leak. Procedure Note Florence Hedrick MD - 03/02/2022 Reason for exam: Screening. No new breast complaints. This patient had retropectoralsilicone implants placed in 2009. TECHNIQUE: Digital Mammography and tomosynthesis were used to obtain images. ComputerAided Detection was used to aid in interpretation and volumetric breastdensity assessment may have been used as an aid in evaluating breastdensity. COMPARISON: Comparison is made with relevant prior imaging in PACS. Breast Composition: scattered areas of fibroglandular density. FINDINGS: Bilateral Breasts: No significant masses, suspicious calcifications, or other abnormalitiesare seen. Routine views as well as pushback or displacement views are obtained. Thesilicone implants have a smooth contour without evidence of extravasationor leak. IMPRESSION: No mammographic evidence of malignancy. [...] examination documented in this encounter Care Teams Radiology Scheduler Relationship Specialty Start Date End Date Rachna Guajardo MD [address] [address] PCP - General Internal Medicine 12/19/19 03/11/24 System, Provider [place] In, [place] [address] PCP - General 03/12/24 04/20/24 [place] [address] PCP - General Internal Medicine 04/21/24 documented as of this encounter Additional Source Comments The information contained in this document represents components of the legal health record. It is not the complete legal health record.[facility]
--- OUTSIDE RECORDS SUMMARY | 2025-04-15 16:38 | XMS_ITS | Encounter Summary ---
Author Organization [facility] Address [address] [facility] [address] [place] [address] Phone Care Team Providers Care Screen Examiner Name Role Phone Rachna Guajardo MD Primary Care Provider + [phone] System, Provider Not In PhD Primary Care Provide r Katie Griffin MD Primary Care Provider + [phone] Encounter Details Date Type Department Care Team (Late st Contact Info) Description 03/02/2022 Ancillary Orders [facility] [address] [place] [address] Regina Ashraf MD [address] [place] [address] Screening breast examination Social History Tobacco Use [...] st Contact Info) Description 03/14/2025 Procedure Pass [facility] [address] [place] [address] [address] 03/19/2026 9:45 AM EDT Appointment [facility] [address] [place] [address] Regina Ashraf MD [address] [place] [address] documented as of this encounter Results * BI MAMMOGRAM SCREENING WITH TOMOSYNTHESIS WITH CAD (BILATERAL) (03/03/2023 10:18 AM EDT) Anatomical Region Laterality Modality Breast Left, Breast Right, Breast Bilateral Bila teral Mammography 03/05/2023 3:26 PM EDT Impressions 03/05/2023 3:33 PM EDT No mammographic evidence of malignancy in either breast. Annual screening mammography is recommended. BI-RADS 2 BENIGN The patient will be notified of the results and recommendations. Narrative 03/05/2023 3:33 PM EDT BI MAMMOGRAM SCREENING WITH TOMOSYNTHESIS WITH CAD (BILATERAL) Additional patient information: Screening. COMPARISON: Comparison is made with relevant prior imaging. Breast composition: There are scattered areas of fibroglandular density. FINDINGS: Bilateral retropectoral silicone implants are present. No abnormal masses, suspicious calcifications, or other significant findings are identified mammographically in either breast. Procedure Note Karissa Ham MD - 03/05/2023 BI MAMMOGRAM SCREENING WITH TOMOSYNTHESIS WITH CAD (BILATERAL) Additional patient information: Screening. COMPARISON: Comparison is made with relevant prior imaging. Breast composition: There are scattered areas of fibroglandular density. FINDINGS: Bilateral retropectoral silicone implants are present. No abnormal masses, suspicious calcifications, or other significantfindings are identified mammographically in either breast. IMPRESSION: No mammographic evidence of malignancy in either breast. Annual screening mammography is recommended. BI-RADS 2 BENIGN The patient will be notified of the results and recommendations. us Regina Ashraf MD IMG MG EXAMS Final Result documented in this encounter Visit Diagnoses Diagnosis Screening breast examination Other screening breast examination Screening breast examination Other screening breast examination documented in this encounter Care Teams Screen Examiner Relationship Specialty Start Date End Date Rachna Guajardo MD [address] [address] PCP - General Internal Medicine 12/19/19 03/11/24 System, Provider Not In, PhD [address] [address] PCP - General 03/12/24 04/20/24 Katie Jin MD [place] [id number] PCP - General Internal Medicine 04/21/24 documented as of this encounter Additional Source Comments The information contained in this document represents components of the legal health record. It is not the complete legal health record.[facility]
--- OUTSIDE RECORDS SUMMARY | 2025-04-15 16:38 | XMS_ITS | Encounter Summary ---
Author Organization [facility] Address [address] [facility] [address] [place] [address] Phone Care Team Providers Care Strap Sewer Name Role Phone Rachna Guajardo MD Primary Care Provider + [phone] System, Provider Not In PhD Primary Care Provide Katie Tran MD Primary Care Provider + [phone] Encounter Details Date Type Department Care Team (Late st Contact Info) Description 03/02/2022 Procedure Pass [facility] [address] [place] [address] Social History Tobacco Use Types Packs/Day Years [...] st Contact Info) Description 03/14/2025 Procedure Pass [facility] [address] [place] [address] 03/19/2026 9:45 AM EDT Appointment [facility] [address] [address] Regina Ashraf MD [address] [place] [address] documented as of this encounter Visit Diagnoses Not on filedocumented in this encounter Care Teams Strap Sewer Relationship Specialty Start Date End Date Rachna Guajardo MD [address] [place] [address] PCP - General Internal Medicine 12/19/19 03/11/24 System, Provider Not In, PhD [address] [address] PCP - General 03/12/24 04/20/24 Katie Jin MD [address] [address] PCP - General Internal Medicine 04/21/24 documented as of this encounter Additional Source Comments The information contained in this document represents components of the legal health record. It is not the complete legal health record.[facility]
--- OUTSIDE RECORDS SUMMARY | 2025-04-15 16:38 | XMS_ITS | Encounter Summary ---
Author Organization [facility] and [facility] Address [address] [place] [id number] Care Team Providers Care Double End Chucking Machine Operator Name Role Phone Katie Burns MD Primary Care Provider Reason for Visit * Reason Comments External Clinician or Hospital Call Radi ology Encounter Details Date Type Department Care Team ([facility] st Contact Info) Description 05/12/2022 Telephone [facility] [address] [facility] [address] [facility] [place] [address] Guerrero Martínez MD PhD [address] [place] [phone] External Clinician or Hospital Call (Radiology) Social History Tobacco Use Types Packs/Day Years [...] Recorded In the last 10 days, have yo u been in contact with someone who was confirmed or suspected to have Coronavirus/COVID-19? No / Unsure 04/24/2022 7:10 PM EDT documented as of this encounter Miscellaneous Notes * Telephone Encounter - Rebecca Browne - 05/12/2022 10:44 AM EST [phone] Radiology, Central Scheduling [facility] Radiology calling to notify provider first avail date for CT is 05/25/22. Per Radiology, pt stated appt for imaging would need to be sooner than next avail. Please advise. documented in this encounter Plan of Treatment Not on file documented as of this encounter Visit Diagnoses Not on filedocumented in this encounter Additional Health Concerns Assessment Noted Time PHQ-9 Depression Total Score: 0 04/25/20 22 9:38 AM EDT documented as of this encounter Care Teams Double End Chucking Machine Operator Relationship Specialty Start Date End Date Katie Burns MD [address] [phone] PCP - General Internal Medicine 10/27/22 documented as of this encounter
--- OUTSIDE RECORDS SUMMARY | 2025-04-15 16:39 | XMS_ITS | Encounter Summary ---
Author Organization [facility] Address [address] [facility] [address] [place] [address] Phone Care Team Providers Care Paper Cap Machine Operator Name Role Phone Rachna Guajardo MD Primary Care Provider + -[phone] System, Provider Not In PhD Primary Care Provide r Katie Griffin MD Primary Care Provider + [phone] Encounter Details Date Type Department Care Team (Late st Contact Info) Description 03/08/2024 Procedure Pass [facility] [address] [place] [address] Social History Tobacco Use Types Packs/Day Years [...] st Contact Info) Description 03/14/2025 Procedure Pass [facility] [address] [place] [address] 03/19/2026 9:45 AM EDT Appointment [facility] [address] [place] [address] Regina Ashraf MD [address] [place] [address] documented as of this encounter Visit Diagnoses Not on filedocumented in this encounter Care Teams Paper Cap Machine Operator Relationship Specialty Start Date End Date Rachna Guajardo MD [address] [place] [address] PCP - General Internal Medicine 12/19/19 03/11/24 System, Provider Not In, PhD [address] [address] PCP - General 03/12/24 04/20/24 Katie Jin MD [address] [address] PCP - General Internal Medicine 04/21/24 documented as of this encounter Additional Source Comments The information contained in this document represents components of the legal health record. It is not the complete legal health record.[facility]
--- OUTSIDE RECORDS SUMMARY | 2025-04-15 16:39 | XMS_ITS | Encounter Summary ---
Author Organization [facility] Address [address] [facility] [address] [place] [address] Phone Care Team Providers Care Assistant Professor Of Biochemistry Name Role Phone Rachna Guajardo MD Primary Care Provider + [phone] System, Provider Not In PhD Primary Care Provide r Katie Griffin MD Primary Care Provider + [phone] Encounter Details Date Type Department Care Team (Late st Contact Info) Description 03/03/2023 Procedure Pass [facility] [address] [place] [address] Social History Tobacco Use Types Packs/Day Years [...] st Contact Info) Description 03/14/2025 Procedure Pass [facility] [address] [place] [address] 03/19/2026 9:45 AM EDT Appointment [facility] [address] [place] [address] Regina Ashraf MD [address] [place] [address] documented as of this encounter Visit Diagnoses Not on filedocumented in this encounter Care Teams Assistant Professor Of Biochemistry Relationship Specialty Start Date End Date Rachna Guajardo MD [address] [place] [address] PCP - General Internal Medicine 12/19/19 03/11/24 System, Provider Not In, PhD [address] [address] PCP - General 03/12/24 04/20/24 Katie Jin MD [address] [address] PCP - General Internal Medicine 04/21/24 documented as of this encounter Additional Source Comments The information contained in this document represents components of the legal health record. It is not the complete legal health record.[facility]
--- OUTSIDE RECORDS SUMMARY | 2025-04-15 16:39 | XMS_ITS | Encounter Summary ---
Author Organization [facility] Address [address] [facility] [address] [place] [address] Phone Care Team Providers Care Automotive Manager Name Role Phone Rachna Guajardo MD Primary Care Provider + [phone] System, Provider Not In PhD Primary Care Provide r Katie Griffin MD Primary Care Provider + [phone] Encounter Details Date Type Department Care Team (Late st Contact Info) Description 03/08/2024 Ancillary Orders [facility] [address] [place] [address] Regina Ashraf MD [address] [place] [address] Screening breast examination (Primary Dx) Social History [...] st Contact Info) Description 03/14/2025 Procedure Pass [facility] [address] [place] [address] 03/19/2026 9:45 AM EDT Appointment [facility] [place] [address] [place] [address] Regina Ashraf MD [address] [place] [address] documented as of this encounter Results * [...] breast examination- Primary Other screening breast examination Screening breast examination Other screening breast examination documented in this encounter Care Teams Automotive Manager Relationship Specialty Start Date End Date Rachna Guajardo MD [address] [place] [address] PCP - General Internal Medicine 12/19/19 03/11/24 System, Provider Not In, PhD [address] [address] PCP - General 03/12/24 04/20/24 Katie Jin MD [address] [address] PCP - General Internal Medicine 04/21/24 documented as of this encounter Additional Source Comments The information contained in this document represents components of the legal health record. It is not the complete legal health record.[facility]
--- OUTSIDE RECORDS SUMMARY | 2025-04-15 16:39 | XMS_ITS | Encounter Summary ---
Author Organization [facility] Address [address] [facility] [address] [place] [address] Phone Care Team Providers Care Transportation Solutions Manager Name Role Phone Rachna Guajardo MD Primary Care Provider + -[phone] System, Provider Not In PhD Primary Care Provide r Katie Griffin MD Primary Care Provider + [phone] Encounter Details Date Type Department Care Team (Late st Contact Info) Description 03/03/2023 Ancillary Orders [facility] [address] [place] [address] Regina Ashraf MD [address] [place] [address] Screening breast examination Social History Tobacco Use [...] st Contact Info) Description 03/14/2025 Procedure Pass [facility] [address] [place] [address] 03/19/2026 9:45 AM EDT Appointment [facility] [address] [address] Regina Ashraf MD [address] [place] [address] documented as of this encounter Results * BI MAMMOGRAM SCREENING WITH TOMOSYNTHESIS WITH CAD (BILATERAL) (03/08/2024 9:44 AM EDT) Anatomical Region Laterality Modality Breast Left, Breast Right, Breast Bilateral Bila teral Mammography 03/12/2024 10:2 6 AM EDT Impressions 03/12/2024 10:29 AM EDT No mammographic evidence of malignancy in either breast. Annual screening mammography is recommended. BI-RADS 1 NEGATIVE The patient will be notified of the results and recommendations. Narrative 03/12/2024 10:29 AM EDT BI MAMMOGRAM SCREENING WITH TOMOSYNTHESIS WITH CAD (BILATERAL) Additional patient information: Screening. COMPARISON: Comparison is made with relevant prior imaging. Breast composition: There are scattered areas of fibroglandular density. FINDINGS: Bilateral breast implants are present, which lowers the sensitivity of mammography. No abnormal masses, suspicious calcifications, or other significant findings are identified mammographically in either breast. Procedure Note Sherry Almeida MD - 03/12/2024 BI MAMMOGRAM SCREENING WITH TOMOSYNTHESIS WITH CAD [...] examination documented in this encounter Care Teams Transportation Solutions Manager Relationship Specialty Start Date End Date Rachna Guajardo MD [address] [place] [address] PCP - General Internal Medicine 12/19/19 03/11/24 System, Provider Not In, PhD [address] [address] PCP - General 03/12/24 04/20/24 Katie Jin MD [place] [phone] PCP - General Internal Medicine 04/21/24 documented as of this encounter Additional Source Comments The information contained in this document represents components of the legal health record. It is not the complete legal health record.[facility]
--- OUTSIDE RECORDS SUMMARY | 2025-04-15 16:39 | XMS_ITS | Encounter Summary ---
Author Organization [facility] Address [address] [facility] [address] [place] [address] Phone Care Team Providers Care Wrapper Stemmer Operator Name Role Phone Katie Jin MD Primary Care Provider Encounter Details Date Type Department Care Team (Late st Contact Info) Description 03/14/2025 Ancillary Orders [facility] [address] [address] Regina Ashraf MD [address] [place] [address] Screening breast examination (Primary Dx) Social History [...] st Contact Info) Description 03/14/2025 Procedure Pass [facility] [address] [place] [address] 03/19/2026 9:45 AM EDT Appointment [facility] [place] [address] [place] [address] eRgina Ashraf MD [address] [place] [address] Scheduled Orders Name Type Priority Associated Diagnoses Orde r Schedule Mammogram Screening (Bilateral) Imaging Routine Screening breast examination 1 Occurrences starting 03/14/2025 until 03/14/2027 documented as of this encounter Visit Diagnoses Diagnosis Screening breast examination- Primary Other screening breast examination documented in this encounter Care Teams Wrapper Stemmer Operator Relationship Specialty Start Date End Date Katie Jin MD PCP - General Internal Medicine 04/21/24 documented as of this encounter Additional Source Comments The information contained in this document represents components of the legal health record. It is not the complete legal health record.[facility]
== END 2025-04-15 13:48 | disposition home or self-care (01) ==
LOC: HO.HMCFM 12:59
PROVIDERS: PCP Internal Medicine; Visit Provider Internal Medicine
DX: Z00.00 Encounter for general adult medical examination without abnormal findings (principal); E78.2 Mixed hyperlipidemia; E04.1 Nontoxic single thyroid nodule; M81.0 Age-related osteoporosis without current pathological fracture; K58.9 Irritable bowel syndrome, unspecified

== ENCOUNTER 2025-04-15 12:58 | Outpatient (REF) | payer OTHER, SELFPAY ==
[2025-04-15 18:05] LABS: MANUAL DIFF FLAG NO
[2025-04-15 18:07] LABS: Hematocrit 41.8 % (37.0-47.0); Hemoglobin 14.0 g/dl (12.0-16.0); Imm Gran Abs Auto 0.03 X10*3/uL (0.00-0.03); Imm Gran Pct Auto 0.5 % (0.0-0.4); Lymphocytes Absolute Auto 1.9 X10*3/uL (1.2-4.9); Mean Corpuscular HGB Conc 33.5 g/dl (31.0-35.0); Mean Corpuscular Hemoglobin 30.6 pg (27.0-33.0); Mean Corpuscular Volume 91.3 fL (80.0-98.0); NRBC Abs Auto 0.000 X10*3/uL (0.0-0.012); NRBC Pct Auto 0.0 /100WBC (0.0-0.2); Platelet Count 279 X10*3/uL (160-400); Red Blood Count 4.58 X10*6/uL (4.20-5.50); White Blood Count 6.1 X10*3/uL (4.8-10.8)
[2025-04-15 18:36] LABS: Alanine Aminotransferase 29 U/L (0-31); Albumin Level 4.7 g/dL (3.5-5.0); Alkaline Phosphatase 72 U/L (39-117); Anion Gap 9 (12-20); Aspartate Amino Transferase 38 U/L (5-31); Blood Urea Nitrogen 15 mg/dL (9-16); Calcium 9.9 mg/dL (8.4-10.2); Carbon Dioxide 30 mmol/L (22-29); Chloride 106 mmol/L (96-108); Cholesterol 200 mg/dL (<200); Estimated Glomerular Filt Rate > 60; HDL Cholesterol 57 mg/dL (>40); Potassium 4.0 mmol/L (3.3-5.1); Sodium 141 mmol/L (135-145); Total Protein 6.7 g/dL (6.5-8.0); Triglycerides 68 mg/dL (<150)
--- OUTSIDE RECORDS SUMMARY | 2025-04-15 18:45 | XMS_ITS ---
Author Name [facility] Organization Unknown History of Medication Use Medication Directions Dispensed Refills Start Date End Date Status lidocaine (PF) 100 mg/5 mL (2 %) injection syringe Take 6 mL by injection route. 11/20/19 25 active triamcinolone acetonide 40 mg/mL suspension for injection Take 60 mg by injection route. 11/20/19 25 active JUBLIA 10% Topical Solution 06/07/20 24 025 active Vitamins 11/24/19 24 active enoxaparin (LOVENOX) injection 30 mg 30 mg, Subcutaneous, Every 24 Hours Scheduled (Daily), First dose on Mon03/15/23 at 0900Contraindicated with epidural use. Common Side Effects: Bruising, minor and major bleeding. 03/15/20 023 aborted oxyCODONE (ROXICODONE) 5 mg Immediate Release tablet Take 1 tablet (5 mg total) by mouth every 4 (four) hours as needed. 03/15/20 23 023 aborted famotidine (PEPCID) tablet 20 mg 20 mg, Oral, 2 Times Daily Scheduled, First dose on Mon03/13/23 at 2100Common Side Effects: Dizziness, headache, stomach upset, confusion.Pharmacist will implement [facility] Renal Dose Adjustment Protocol unless otherwise specified: Implement ProtocolProtocol: [email or web address] 03/14/20 023 aborted heparin (PORCINE) injection 5,000 Units 5,000 Units, Subcutaneous, Every 8 Hours Scheduled, First dose on Mon03/13/23 at 2200For VTE Prophylaxis, administer dose as SC. For Heparin Infusion Protocol bolus, administer dose as IV Push undiluted over 1 minute. RECOMMENDED monitoring includes: Bleeding. Common Side Effects include bruising a 03/14/20 023 aborted potassium chloride SA (K-DUR,KLOR-CON M) 24 hr tablet 40 mEq 40 mEq, Oral, ONCE, On Mon03/14/23 at 0900, For 1 doseNOTE: Product is dosed in mEq of ELEMENTAL potassium. Hold for Postassium level > 4.5 mmol/L, and call MD/SISI if potassium repletion should be continued. Common Side Effects: Stomach upset, diarrhea. 03/14/20 023 completed naloxone (NARCAN) injection 0.04 mg 0.04 mg, IV Push, EVERY 5 MIN PRN, opioid reversal, Respiratory Rate < 8 and patient unarousable. STOP HAT CUTTER/PCEA and call VETERINARY ATTENDANT/REV Team and ordering service. Give naloxone 0.04 mg IVP x 1. If patient does not respond, repeat naloxone 0.04 mg IVP x1 to maximum of 0.08 mg, Starting on Mon03/13/23 at 03/13/20 023 aborted D5 1/2 NS infusion 75 mL/hr, Intravenou s, CONTINUOUS, Starting on Mon03/13/23 at 1300 03/13/20 023 aborted HYDROmorphone PF (DILAUDID) 1 mg/mL in sodium chloride 0.9 % 50 mL HAT CUTTER Intravenous, CONTINUOUS, Starting on Mon03/13/23 at 1300, For 7 daysPlease utilize the Clinician Bolus function of the [employer] Pump to administer the loading dose, if ordered. Irritant Request next dose 2 hours in advance through AUG message. 03/13/20 023 aborted metroNIDAZOLE (FLAGYL) tablet 500 mg 500 mg, Oral, EVERY 12 HOURS, First dose on Mon03/13/23 at 1545, For 6 dosesCommon Side Effects: Headache, metallic taste, stomach upset.Reason for Use (RFU): Other (specify)Other reason: surgical prophylaxisPharmacist will implement [facility] Renal Dose Adjustment Protocol unless otherwise specifie 03/13/20 023 aborted ceFAZolin (ANCEF) 2 g in sodium chloride 0.9% PF 20 mL (100 mg/mL) 2 g (rounded from 2,000 mg), IV Push, EVERY 12 HOURS, First dose on Mon03/13/23 at 1545, For 24 hoursThis drug may be automatically dose-adjusted by the Pharmacist according to the patient s renal function as approved by the [facility] Formulary Integration Committee (FIC). Irritant; Common Side Effects 03/13/20 completed chlorhexidine gluconate (PERIDEX) 0.12 % solution Starting on Mon03/13/23 at 0700, For 1 doseCreated by cabinet override 03/13/20 completed chlorhexidine gluconate (PERIDEX) 0.12 % solution 15 mL 15 mL, Mouth/Throat, ONCE, On Mon03/13/23 at 0700, For 1 dose, Pre-opFor patients with the potential to undergo General Anesthesia.15ml solution x 30 sec, swish and spit. Do not swallow or dilute. Do not drink for 5 minutes right after use of this medication. 03/13/20 completed zoledronic acid/mannitol-water (RECLAST IV) Inject 5 mg into the vein Every 12 (twelve) months. 10/28/19 active amoxicillin-clavula indra (AUGMENTIN) 875-125 mg per tablet Take 1 tablet by mouth every 12 (twelve) hours for 10 days. 05/04/20 active amoxicillin-clavula indra (AUGMENTIN) 875-125 mg tablet 1 tablet 1 tablet (875 mg), Oral, EVERY 12 HOURS, First dose on Mon05/03/22 at 1045This drug may be automatically dose-adjusted by the Pharmacist according to the patient s renal function as approved by the [facility] Formulary Integration Committee (FIC).Reason for Use (RFU): Other (specify)Other reason: dive 05/03/20 aborted iohexoL (OMNIPAQUE) 350 mg iodine/mL injection 50 mL 50 mL, Intravenous, IMG ONCE PRN, other, Starting on Mon05/01/22 at 1704, For 1 doseVesicant agents may cause severe tissue damage, including necrosis, if they extravasate into tissue; Common Side Effects: Headache, nausea, allergic reaction. 05/01/20 completed sodium chloride 0.9% large volume syringe for autoinjector 50 mL 50 mL, Intravenous, IMG ONCE PRN, other, Imaging, Starting on 05/01/22 at 1704, For 1 dose 05/01/20 22 completed cyclobenzaprine (FLEXERIL) tablet 10 mg 10 mg, Oral, ONCE PRN, muscle spasms, other, tension headache, Starting on 04/30/22 at 0959, For 1 dose 04/30/20 22 completed Adult, adolescent, and children 11 years of age and older or 40 kg or greater parenteral nutrition FOR CENTRAL ADMINISTRATION ONLY. (Monday, 05/02) at 4 pm, please reduce infusion rate to 37 ml/hr for 3 hrs. Discontinue TPN at 7 pm. Vesicant agents may cause severe tissue damage, including necrosis, if they extravasate into tissue; Administer via CENTRAL line. USE FILTER OR FILTER TUBING ; Fi 04/29/20 completed potassium chloride in sterile water 20 mEq/100 mL IVPB 20 mEq 20 mEq, Intravenous, Administer over 60 Minutes, Every Hour Scheduled, First dose on Rocio 04/28/22 at 0600, For 3 dosesPotassium level 3.0-3.2 mmol/L AND CrCl >/= 30 ml/min; replete with Potassium Chloride 20 mEq IV x 2 doses. Irritant. Maximum recommended rate is over 120 minutes, or 60 minutes if p 04/28/20 22 completed chlorhexidine gluconate (HIBICLENS/BETASEPT ) 4 % topical liquid Topical (Top), Daily, First dose on Mon04/27/22 at 1600Apply from the neck down for daily bathing. Do not apply to head or face (including mouth, eyes, or nose), internal genital membranes, and/or wounds that involve more than the superficial layer of the skin. For patients with an indwelling urina 04/27/20 aborted sodium chloride 0.9 % flush 10 mL 10 mL, Intra-Catheter, Every 24 Hours Scheduled (Daily), First dose on Rocio 04/28/22 at 0900For Capped Lumen Only Flush using a pulsatile, push pause technique 04/27/20 aborted sodium chloride 0.9 % flush 20 mL 20 mL, Intra-Catheter, PRN for Line Care, other, After Blood Specimen Sampling, Starting on Mon04/27/22 at 1557Flush using a pulsatile, push pause technique 04/27/20 aborted barium sulfate (READI-CAT 2) 2 % (w/v) suspension 900 mL 900 mL, Oral, IMG ONCE PRN, other, Starting on Mon05/01/22 at 1319, For 1 dose 04/27/20 completed iohexoL (OMNIPAQUE) 350 mg iodine/mL injection 80 mL 80 mL, Intravenous, IMG ONCE PRN, other, Starting on Mon04/27/22 at 1109, For 1 doseVesicant agents may cause severe tissue damage, including necrosis, if they extravasate into tissue; Common Side Effects: Headache, nausea, allergic reaction. 04/27/20 completed lidocaine (PF) (XYLOCAINE) 10 mg/mL (1 %) injection 5 mL 5 mL, Intradermal, ONCE, On Mon04/27/22 at 1600, For 1 dose 04/27/20 completed potassium bicarbonate-citric acid (EFFER-K, K-LYTE) effervescent tablet for oral solution 20 mEq 20 mEq, Oral, ONCE, On Mon04/27/22 at 0915, For 1 dosePotassium level 3.3-3.4 mmol/L AND CrCl >/= 30 ml/min; replete with Potassium effervescent tablet 20 mEq. Completely dissolve the effervescent tablet in 3 ounces (90 mL) of water before drinking or administration. 04/27/20 completed sodium chloride 0.9% large volume syringe for autoinjector 60 mL 60 mL, Intravenous, IMG ONCE PRN, other, Imaging, Starting on Mon04/27/22 at 1109, For 1 dose 04/27/20 completed acetaminophen (TYLENOL) tablet 975 mg 975 mg, Oral, Every 6 Hours Scheduled, First dose (after last modification) on Mon03/14/23 at 1200Maximum dose of acetaminophen is 4000 mg from all sources in 24 hours. 04/25/20 22 023 aborted acetaminophen (TYLENOL) tablet 650 mg 650 mg, Oral, EVERY 6 HOURS PRN, mild Pain (PIS 1-3), for adult patients may also give for higher pain score per patient preference, Starting on Mon03/13/23 at 1648Maximum dose of acetaminophen is 4000 mg from all sources in 24 hours. 04/25/20 aborted enoxaparin (LOVENOX) syringe 40 mg 40 mg, Subcutaneous, Every 24 Hours Scheduled (Daily), First dose on Mon04/25/22 at 0900This medication may be automatically dose adjusted by the Pharmacists for patients with BMI > 40 kg/m2 or < 18 kg/m2 according the VTE Prophylaxis Dose Adjustment Standing Order: Extremes of Body Weights. Contr 04/25/20 aborted ondansetron (PF) (ZOFRAN) injection 4 mg 4 mg, IV Push, EVERY 6 HOURS PRN, nausea or vomiting, Starting on Mon04/25/22 at 1127Maximum IV Push dose of 16 mg. If ordered IV Push, administer undiluted over 2 minutes. Common side effects include: lightheaded, stomach upset, and headache. Irritant 04/25/20 aborted sodium chloride 0.9 % flush 3 mL 3 mL, IV Push, Every 8 Hours Scheduled, First dose on Mon04/25/22 at 0600For PIV lock flush only. 04/25/20 aborted piperacillin-tazoba ctam (ZOSYN) 4.5 g in sodium chloride 0.9% 100 mL (mini-bag plus) 4.5 g, Intravenous, at 33.33 mL/hr, EVERY 6 HOURS, First dose (after last modification) on Mon04/25/22 at 1215, For 34 dosesFor all hospitals ([facility], &, [place], [place] & [place]): Infuse over 180 minutes. For the ED, OR and Outpatient Clinics: Infuse over 30 minutes. For patients receivin 04/25/20 aborted D5 1/2 NS with KCl 20 mEq/L infusion 75 mL/hr, Intravenous, CONTINUOUS, Starting on Mon04/25/22 at 1545, For 3 days 4 hours 04/25/20 completed potassium chloride in sterile water 10 mEq/100 mL IVPB 10 mEq 10 mEq, Intravenous, Administer over 60 Minutes, Every Hour Scheduled, First dose on Mon04/26/22 at 0800, For 3 dosesPotassium level 3.3-3.4 mmol/L AND CrCl >/= 30 ml/min; replete with Potassium Chloride 10 mEq IV x 2 doses. 04/25/20 completed vancomycin (VANCOCIN) 1 g in sodium chloride 0.9% 250 mL IVPB (vialmate) 1 g, Intravenous, Administer over 60 Minutes, EVERY 12 HOURS, First dose on Mon04/25/22 at 1000This drug may be automatically dose-adjusted by the Pharmacist according to the patient's renal function as approved by the [facility] Formulary Integration Committee (FIC). Irritant; Activate prior to use vi 04/25/20 aborted lactated ringers infusion 50 mL/hr, Intravenous, CONTINUOUS, Starting on Mon04/25/22 at 0700 04/25/20 aborted metroNIDAZOLE (FLAGYL) 500 mg/100 mL IVPB 500 mg 500 mg, Intravenous, Administer over 30 Minutes, at 200 mL/hr, EVERY 12 HOURS, First dose (after last reorder) on Mon04/24/22 at 2315Common Side Effects: Headache, metallic taste, stomach upset. IrritantReason for Use (RFU): Anaerobic infectionPharmacist will implement Pharmacist IV to Enteral C 04/25/20 aborted piperacillin-tazoba ctam (ZOSYN) 3.375 g in sodium chloride 0.9% 50 mL (mini-bag plus) 3.375 g, Intravenous, at 16.67 mL/hr, EVERY 6 HOURS, First dose on Mon04/25/22 at 0615, For 72 hoursFor all hospitals ([facility], &, [facility] & [place]): Infuse over 180 minutes. For the ED, OR and Outpatient Clinics: Infuse over 30 minutes. For patients receiving Hemodialysis, please r 04/25/20 aborted Reclast 5mg/100ml solution for injection 11/12/19 21 active loperamide (IMODIUM A-D) 2 mg tablet Take 0.5 tablets (1 mg total) by mouth 5 (five) times a week. 023 aborted lidocaine (PF) 100 m g/5 mL (2 %) injection syringe active triamcinolone aceton avelino 40 mg/mL suspension for injection active carisoprodol 350 mg tablet TAKE 1 TABLET ONCE A DAY active cetirizine 10 mg tablet TAKE 1 TABLET BY MOUTH EVERY DAY active Clenpiq 10 mg-3.5 gram-12 gram/175 mL oral solution TAKE 160 ML BY MOUTH DIRECTED USE DIRECTED BY PHYSICIANS OFFICE INSTRUCTIONS active erythromycin 5 mg/gram (0.5 %) eye ointment APPLY TO AFFECTED EYE 4 TIMES A DAY FOR 7 DAYS activ e estradiol 0.01% (0.1 mg/gram) vaginal cream INSERT 1 GRAM VAGINALLY TWICE A WEEK AT BEDTIME acti ve ibuprofen 800 mg tablet TAKE 1 TABLET BY MOUTH 3 TIMES A DAY NEEDED FOR PAIN active Jublia 10 % topical solution with applicator Apply TO affected toe nails ONCE DAILY active metronidazole 0.75 % topical cream APPLY PEA-SIZED AMOUNT TO FACE TWICE A DAY active scopolamine 1 mg over 3 days transdermal patch APPLY 1 PATCH BEHIND THE EAR EVERY 3 DAYS NEEDED DIRECTED active biotin 10,000 mcg Cap Take 1 capsule by mouth daily. active cholecalciferol, vitamin D3, (VITAMIN D3 ORAL) Take 1 tablet by mouth 5 (five) times a week. activ e multivitamin capsule Take 1 capsule by mouth daily. active Allergies Allergen Reaction Severity Comment Documented Date Source Statu s DOXYCYCLINE MONOHYDRATE OTHER (SEE COMMENTS) STOMACH ULCERS 04/27/2021 [facility] active SULFA (SULFONAMIDE ANTIBIOTICS) HIVES 08/15/2002 [facility] active SULFA [facility] Problems Problem Status Onset Date Problem Type Date of Resolution Source Mononeuritis active 2020-12-01 ProblemAct [facility] Tendinitis / enthesopathy LEFT FOOT, capsulitis, periostitis active 2024-06-07 ProblemAct [facility] Plantar Flexed Metatarsal - Metatarsalgia, LEFT foot active 2024-06-07 ProblemAct [facility] Stress fracture, right foot, subsequent encounter for fracture with routine healing active 2023-12-22 ProblemAct [facility] Activity, walking, marching and hiking active 2020-11-11 ProblemAct [facility] RCT 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 active 2020-11-11 ProblemAct [facility] Stress fracture, right foot, initial encounter for fracture active 2023-11-24 ProblemAct [facility] Contusion of toe active 2020-11-11 ProblemAct E [facility] Tinea unguium, onychomycosis active 2024-06-07 ProblemAct [facility] Other hammer toe(s) (acquired), left foot active 2024-06-07 EncounterDiagnosisAct ENS_PO DCRCT Dystrophia unguium active 2021-01-01 ProblemAct [facility] Heel pain active 2023-11-24 ProblemAct [facility] RCT [id number] - Heel pain active 2024-06-[address] [facility] Diverticulitis of both large and small intestine with abscess without bleeding active EncounterDiagnosisAct [facility] Diverticulitis active 2022-04-26 ProblemAct [facility] Colovaginal fistula active EncounterDiagnosisAc t [facility] Perforation bowel active 2022-04-24 ProblemAct [facility] History of abdominal surgery active 2023-03-13 ProblemAct [facility] Encounters Encounter Type Encounter Reason Primary Diagnosis Location Date Ambulatory Abdominal pain, epigastric Abdominal pain, epigastric [facility] ([facility]) 03/06/2025 Ambulatory [facility] 12/06/2024 Ambulatory [facility] 11/20/2024 Ambulatory [facility] 11/19/2024 Ambulatory [facility] 11/19/2024 Ambulatory [facility] 11/19/2024 Ambulatory [facility] 11/19/2024 Ambulatory [facility] 11/18/2024 Ambulatory [facility] 11/18/2024 Ambulatory [facility] 11/15/2024 Inpatient Diverticulitis of small intestine (without mention of hemorrhage) Diverticulitis of small intestine (without mention of hemorrhage) [facility] 03/13/2023 Inpatient Perforation of intestine (HC Code) [facility] 04/24/2022 Ambulatory [email or web address] 04/24/2022 Care Team Organization Name Specialty Phone Email Start Date End Da constance [facility] ([facility]) [facility]/06[facility]2025 [facility] 03/13/2023 [facility] 11/26/2022 [facility] Primary [facility] [place] 04/25/2022 [facility] 04/24/20222021 [facility] 04/24/2022 022 [facility]
--- OUTSIDE RECORDS SUMMARY | 2025-04-15 18:45 | XMS_ITS | Clinical Summary ---
Author Organization [facility] [address] [facility] Address [address] [place] [address] Phone Care Team Providers Care [employer] Operator Name Role Phone Rachna Guajardo MD Primary Care Provider [phone] Encounters Date Type Department Care Team Description 03/13/2025 Telephone Gastroenterology - [address] [phone] Provider, Not In System 03/06/2025 Telephone Gastroenterology - [address] [phone] Nitesh Horner MD 03/06/2025 Telephone Gastroenterology - [address] [phone] Nitesh Horner MD from Last 3 Months Surgical History Surgery Date Site/Laterality Comments FACIAL COSMETIC SURGERY PROCEDURE:FACIAL COSMETIC SURGERY Medical History Medical History Date Comments Osteoporosis DX:Osteoporosis Family History Medical History Relation Name Comments Cervical cancer Cousin Heart disease Father Dementia Mother Relation Name Status Comments Cousin Alive Father Mother Social History Tobacco Use Types Packs/Day Years Used Date Smoking Tobacco: Never Smokeless Tobacco: Never Alcohol Use Standard Drinks/Week Comments Yes 1 (1 standard drink = 0.6 oz pur e alcohol) Comments Unknown Sex and Gender Information Value Date Recorded Sex Assigned at Not on file Legal Sex Female 11:10 AM EST Gender Identity Not on file Sexual Orientation Not on file Obstetrics History Plan of Treatment Health Maintenance Due Date Last Done Comments Breast Cancer Screening 1950 DTaP,Tdap,and Td Vaccines (1 - Tdap) 10/25/1971 Pneumococcal Vaccine: 50+ Ye ars (1 of 1 - PCV) 2002 Zoster Vaccines (1 of 2) 2002 Falls Risk Assessment 05/24/2022 Hepatitis C Screening 05/24/2022 Osteoporosis Screening (Bone Density Screening) 05/24/2022 Social Influencers of Health Screening 05/24/2022 Depression Screening 06/26/2024 COVID-19 Vaccine (1 - 2023-2 5 season) 2025 Influenza Vaccine (#1) 2025 RSV Immunization Adult Patie nts (1 - 1-dose 75+ series) 10/25/2027 Colorectal Cancer Screening: Colonoscopy 03/13/2035 03/13/2025 HIB Vaccines Aged Out No longer eligi ble based on patient's age to complete this topic HPV Vaccines Aged Out No longer eligi ble based on patient's age to complete this topic Hepatitis A Vaccines Aged Out No long er eligible based on patient's age to complete this topic Hepatitis B Vaccines Aged Out No long er eligible based on patient's age to complete this topic IPV Vaccines Aged Out No longer eligi ble based on patient's age to complete this topic MMR Vaccines Aged Out No longer eligi ble based on patient's age to complete this topic Meningococcal ACWY Vaccine Aged Out N o longer eligible based on patient's age to complete this topic Meningococcal B Vaccine Aged Out No l onger eligible based on patient's age to complete this topic RSV Immunization Patients Un alice 20 months Aged Out No longer eligible b ased on patient's age to complete this topic Varicella Vaccines Aged Out No longer eligible based on patient's age to complete this topic Procedures Procedure Name Priority Date/Time Associated Diagnosis Comments EGD Routine 03/13/2025 11:33 AM EDT COLONOSCOPY Routine 03/13/2025 11:28 AM EDT from Last 3 Months Results * EGD (03/13/2025 11:33 AM EDT) Anatomical Region Laterality Modality Endoscopy us Historical Provider GI~PROCEDURE ORDERABLES F inal Result * COLONOSCOPY (03/13/2025 11:28 AM EDT) Anatomical Region Laterality Modality Endoscopy us Historical Provider GI~PROCEDURE ORDERABLES F inal Result from Last 3 Months Care Teams Forge [employer] Operator Relationship Specialty Start Date End Date Rachna Guajardo MD [address] [place] [address] PCP - General Internal Medicine 06/04/18
== END 2025-04-15 12:59 | disposition home or self-care (01) ==
LOC: HO.WFDLDS 12:58
PROVIDERS: PCP Internal Medicine; Visit Provider Internal Medicine
DX: Z00.00 Encounter for general adult medical examination without abnormal findings (principal); E78.2 Mixed hyperlipidemia; K58.9 Irritable bowel syndrome, unspecified; M81.0 Age-related osteoporosis without current pathological fracture; M54.17 Radiculopathy, lumbosacral region; R73.09 Other abnormal glucose
CPT/HCPCS: 36415; 80053; 80061; 83036; 84443; 85025; 96127